=== PATIENT | female | born 1980 | race Caucasian/White ===

== ENCOUNTER 2023-09-15 15:35 | Emergency (ER) | payer OTHER, SELFPAY ==
[2023-09-15 15:44] VITALS: BP 161/110; PULSE 95; RESP 16; TEMP 36.6; O2SAT 98; BMI 40.0
--- NOTE | 2023-09-15 15:48 | XR_ITS ---
[address] [address] Patient Name: KHRIS GOFF MRN: [id number] date: 1980 Sex: F Assigned Patient Location: ER Current Patient Location: ED.MAIN Accession/Order Number: [id number] Exam Date: 09/15/2023 16:10 Report Date: 09/15/2023 16:38 At the request of: ANGIE RITTER Procedure: XR foot RT min 3V EXAM: XR foot RT min 3V HISTORY: Foot pain COMPARISON: None. TECHNIQUE: 3 views FINDINGS: No osseous lesion, fracture, dislocation or subluxation. Joint spaces are normal. No visualized effusion. No visualized soft tissue edema. XR/XR foot RT min 3V IMPRESSION: Normal x-rays Electronically authenticated by: DARCI MAHMOOD Date: 09/15/2023 16:38
--- NOTE | 2023-09-15 16:04 | ED.LOWEXI1 ---
HPI - Extremity Injury (Lower) General Chief Complaint: Extremity Injury, Lower Stated Complaint: R FOOT PAIN Time Seen by Provider: 09/15/23 15:46 Source: patient Mode of arrival: Wheelchair History of Present Illness HPI Narrative: Patient was doing plyometric exercises when she felt a pop and pain in the sole of her right foot along the arch. She has no prior history of right foot surgery or pain like this. This occurred about 20 minutes ago and she came directly to the ED to be evaluated. She said that it is painful to walk on/bear weight on the right foot. No fall or other injuries. No ankle, heel or achilles pain. Related Data Allergies Allergy/AdvReac Type Severity Reaction Status Date / Time amoxicillin Allergy Severe Verified 09/15/23 15:48 Exam Narrative Exam Narrative: Nurses notes and vital signs reviewed and patient is not hypoxic. afebrile General: Well-appearing and in no apparent distress. Skin: Warm, dry, no pallor noted. Cardiovascular: normal peripehral perfusion. Respiratory: No accessory muscle use or respiratory distress. Musculoskeletal: right ankle and toes with normal ROM, no calf or popliteal tenderness, no lower extremity edema/swelling. Tenderness on the sole of the right foot near the arch without palpable mass or crepitus. Neurological: A&O x4. No cranial nerve dysfunction observed. No truncal ataxia. Moves all extremities. Sensation intact. Psychiatric: Cooperative and interactive. Normal mood and affect. Constitutional Vital Signs, click to edit/add: Last Vital Signs Temp 97.8 F 09/15/23 15:44 Pulse 95 H 09/15/23 15:44 Resp 16 09/15/23 15:44 BP 161/110 H 09/15/23 15:44 Pulse Ox 98 09/15/23 15:44 O2 Del Method Room Air 09/15/23 15:44 Course Vital Signs Vital signs: Vital Signs Temperature 97.8 F 09/15/23 15:44 Pulse Rate 95 H 09/15/23 15:44 Respiratory Rate 16 09/15/23 15:44 Blood Pressure 161/110 H 09/15/23 15:44 Pulse Oximetry 98 09/15/23 15:44 Oxygen Delivery Method Room Air 09/15/23 15:44 Temperature 97.8 F 09/15/23 15:44 Pulse Rate 95 H 09/15/23 15:44 Respiratory Rate 16 09/15/23 15:44 Blood Pressure 161/110 H 09/15/23 15:44 Pulse Oximetry 98 09/15/23 15:44 Oxygen Delivery Method Room Air 09/15/23 15:44 MDM - Extremity Injury (Lower) MDM Narrative Medical decision making narrative: Patient given ibuprofen and then xrays of the right foot were obtained. No fractures or dislocation noted on viewing of the xrays. patient given reassurance as we discussed the results, diagnosis and plan for treatment. ED nurse applied a post-op shoe to the patient's right foot & patient was encouraged to take OTC ibuprofen for pain. Info given for Dr Garcia's office for referral. Imaging Data xr foot: Radiologist's impression: Patient Name: KHRIS GOFF MRN: [facility]:[id number] date: 1980 Sex: F Assigned Patient Location: ER Current Patient Location: ED.MAIN Accession/Order Number: [id number] Exam Date: 09/15/2023 16:10 Report Date: 09/15/2023 16:38 At the request of: ANGIE RITTER Procedure: XR foot RT min 3V EXAM: XR foot RT min 3V HISTORY: Foot pain COMPARISON: None. TECHNIQUE: 3 views FINDINGS: No osseous lesion, fracture, dislocation or subluxation. Joint spaces are normal. No visualized effusion. No visualized soft tissue edema. IMPRESSION: Normal x-rays Electronically authenticated by: DARCI MAHMOOD Date: 09/15/2023 16:38 Discharge Plan Discharge Chief Complaint: Extremity Injury, Lower Clinical Impression: Right foot sprain Patient Disposition: Home, Self-Care Time of Disposition Decision: 16:31 Instructions: Foot Sprain (ED) Stand Alone Forms: Portal Instructions Referrals: Nick Garcia DPM [Physician] - 1 week Discharge Date/Time: 09/15/23 17:20
--- NOTE | 2023-09-15 16:07 | PC.NURSE ---
bottom of foot has a bump where pt c/o pain. no bruising observed. pt having hard time ambulating on this
[2023-09-15] MEDS: IBUPROFEN 400 MG TABLET 800 MG PO (16:19)
== END 2023-09-15 17:20 | disposition home or self-care (01) ==
LOC: ER 16:38
PROVIDERS: Emergency Provider Emergency Medicine; PCP Family Medicine
DX: S93.601A Unspecified sprain of right foot, initial encounter (principal); X58.XXXA Exposure to other specified factors, initial encounter
CPT/HCPCS: 73630; 99283

== ENCOUNTER 2023-09-27 10:19 | Outpatient (OUT) | payer OTHER, SELFPAY ==
--- NOTE | 2023-09-27 | XR_ITS ---
[address] [address] Patient Name: KHRIS GOFF MRN: [id number] date: 1980 Sex: F Assigned Patient Location: [facility] Current Patient Location: Accession/Order Number: [id number] Exam Date: 09/27/2023 10:42 Report Date: 09/28/2023 08:07 At the request of: HECTOR RADER Procedure: XR foot SHALOM min 3V EXAMINATION: XR foot SHALOM min 3V HISTORY: BILATERAL FOOT PAIN COMPARISON: XR foot right 09/15/2023 FINDINGS: RIGHT FINDINGS: BONES: Small calcaneal plantar spur. No fracture, dislocation, bone lesion. Mild flattening of plantar arch. SOFT TISSUES: No visible soft tissue swelling. OTHER: Negative. LEFT FINDINGS: BONES: Mild flattening of plantar arch. No significant arthropathy or acute abnormality. SOFT TISSUES: No visible soft tissue swelling. OTHER: Negative. XR/XR foot SHALOM min 3V IMPRESSION: RIGHT CONCLUSION: Mild degenerative enthesopathic spurring of the calcaneus and mild pes planus. LEFT CONCLUSION: Mild pes planus. Electronically authenticated by: EVA LISA Date: 09/28/2023 08:07
== END 2023-09-27 10:20 | disposition home or self-care (01) ==
LOC: RAD 10:19
PROVIDERS: PCP Family Medicine; Visit Provider Podiatrist Foot & Ankle Surgery
DX: M79.671 Pain in right foot (principal); M79.672 Pain in left foot; M21.42 Flat foot [pes planus] (acquired), left foot; M21.41 Flat foot [pes planus] (acquired), right foot
CPT/HCPCS: 73630

== ENCOUNTER 2023-09-30 16:22 | Outpatient (RCR) | payer OTHER, SELFPAY | END 2023-10-30 08:00 | disposition home or self-care (01) | LOC: PT 16:22 | PROVIDERS: PCP Nurse Practitioner; Visit Provider Physician Assistant | DX: M72.2 Plantar fascial fibromatosis (principal); M24.575 Contracture, left foot; M24.574 Contracture, right foot | CPT/HCPCS: 97035; 97110; 97112; 97140; 97161 ==

== ENCOUNTER 2023-12-22 09:24 | Outpatient (OUT) | payer OTHER, SELFPAY ==
--- NOTE | 2023-12-22 09:26 | MM_ITS ---
Patient Name: KHRIS OGFF MR#: [id number] : 1980 Exam Date: 12/22/2023 Ordering Doctor: DR Kenneth Pinedo . RADIOLOGY REPORT PROCEDURE: MM TOMOSYNTHESIS SCREENING BI COMPARISON: MG MAMM SCREEN 3D SHALOM CAD, 06/01/2022. MG MAMM SCREEN 3D SHALOM CAD, 04/09/2021. MG MAMM SCREEN SHALOM W CAD, 10/04/2019. INDICATIONS: screening Calculator Name NCI Breast Cancer Risk Assessment Tool 5 Year Breast Cancer Risk 1.20% Lifetime Breast Cancer Risk 14.20% Personal Breast Cancer No Personal Ovarian Cancer No Treatments None Family Cancers Grandmother-paternal with breast cancer at age 70. LOCATION: [facility] BREAST COMPOSITION: Heterogeneously dense,which may obscure small masses. FINDINGS: DIAGNOSTIC CATEGORY 1--NEGATIVE. RIGHT BREAST: No significant suspicious finding. No significant change has occurred. LEFT BREAST: No significant suspicious finding. No significant change has occurred. RECOMMENDATIONS: ROUTINE MAMMOGRAM AND CLINICAL EVALUATION IN 12 MONTHS. PLEASE NOTE: A NORMAL MAMMOGRAM DOES NOT EXCLUDE THE POSSIBILITY OF BREAST CANCER. A CLINICALLY SUSPICIOUS PALPABLE LUMP SHOULD BE BIOPSIED. Dictated by: Alexx Mendez M.D. on 12/22/2023 at 15:49 Approved by: Alexx Mendez M.D. on 12/22/2023 at 15:51
--- OUTSIDE RECORDS SUMMARY | 2023-12-22 09:37 | XMS_ITS | CCD ---
Author Name Unknown Address [address] [place] [address] Organization [facility] Care Team Providers Care Tenter Frame Back Tender Name Role Phone Wesley Taylor Unavailable Unavail able Brandon, Wesley Mcintosh Unavailable Unavail able SHANTI, YARELI Resendez Unavailable Unavailable Gorty, Bj Ace Unavailable Unavailable Brandon, Wesley Mcintosh Unavailable Unavail able Brandon, Wesley Mcintosh Unavailable Unavail able YARELI CRABTREE Unavailable Unavailable KHRIS, DR PRICE Consulting Unavailable KHRIS, DR PRICE Admitting Unavailable CRABTREE, DR YARELI Resendez Primary Care Unavailable KHRIS, DR PRICE Attending Unavailable KHRIS, DR PRICE Admitting Unavailable SHANTI, DR YARELI Resendez Primary Care Unavailable KHRIS, DR PRICE Attending Unavailable KHRIS, DR PRICE Consulting Unavailable ZIEBER, DR ALEXX Ellison Consulting Unavailable Cricket, Sarah Barrett Attending Unavailable VERITO, LUCIA Attending Unavailable VERITO, LUCIA Attending Unavailable VERITO, LUCIA Attending Unavailable VERITO, LUCIA Attending Unavailable Unavailable Primary Care Provider Unavailjessica e Allergies Allergy Classification Reported Allergen(s) Allergy Type Date of Onset Reaction(s) Facility (4 sources) amoxicillin; Translations: [amoxicillin] Drug Allergy 6 Hives, Unknown [facility] Repository Medications Completed/Discontinued Medications Medication Drug Class(es) Dates Sig (Normalized) Sig (Original) meloxicam 7.5 mg oral tablet (1 source) Nonsteroidal Anti-inflammatory Drug Start: 09-12-2023 End: 12-07-2023 meloxicam (Mobic) 7.5 MG tablet Take 7.5 mg by mouth. 0 09/12/2023 12/07/2023 Discontinued phentermine hydrochloride 37.5 mg oral tablet (4 sources) Sympathomimetic Amine Anorectic Start: 09-14-2023 End: 01-06-2024 take 1 tablet by mouth before mealtime phentermine (Adipex-P) 37.5 MG tablet Indications: Encounter for weight management Take 1 tablet (37.5 mg) by mouth in the morning. Take before meals. 30 tablet 0 11/09/2023 12/07/2023 Discontinued Problems Problem Classification Problem Date Documented Date Episodic/Chronic Administrative/social admission (1 source) Patient encounter status; Translations: [Persons encountering health services in other specified circumstances] 12-02-2023 Episodic Immunizations and screening for infectious disease (1 source) Encounter for screening for human papillomavirus (HPV); Translations: [ENC SCREENING HUMAN PAPILLOMAVIRUS] Onset: 06-18-2022 Episodic Other screening for suspected conditions (not mental disorders or infectious disease) (8 sources) Encounter for screening for malignant neoplasm of cervix; Translations: [Encounter for screening mammogram for malignant neoplasm of breast] Onset: 06-01-2022 Episodic Residual codes; unclassified (1 source) Family history of malignant neoplasm of breast; Translations: [FAMILY HX MALIG NEOPLASM OF BREAST] Onset: 06-05-2022 Episodic Results Test Name Value Interpretation Reference Range Facility Consultation Noteon 11-07-19 Consultation Note [id number]#1.00TIFF Normal [facility] Consultation Noteon 10-05-20 Consultation Note [id number]#1.00TIFF Normal [facility] RAD - MISCon 09-28-2023 RAD - MISC [id number]#1.00TIFF Normal [facility] ED Note-Physicianon 09-20-20 ED Note-Physician [id number]#1.00TIFF Normal [facility] ED Note-Physician [id number]#1.00TIFF Normal [facility] RAD - MISCon 09-20-2023 RAD - MISC [id number]#1.00TIFF Normal [facility] Ambulatory Visit Summaryon 1 11-12-2022 Ambulatory Visit Summary KHRIS HERNANDEZ :1980 Visit Date:09/12/2023 Ambulatory Visit Instructions Your Diagnosis Heel pain BMI 39.0-39.9,adult Non-smoker Your Care Team Attending Physician - Sarah Deutsch Primary Care Physician - Sarah Deutsch Procedures Performed Surgery. Discharge Vitals Heart Rate (Peripheral) 80 Respiratory Rate 18 Blood Pressure 142/90 Height 166.2 cm Height 65 in Weight 109.8 kg Weight 241.56 lb BMI 39.75 Allergies amoxicillin (Hives) Problems Ongoing - Any problem that you are currently receiving treatment for. Heel pain Patient Survey You may receive a survey via text or e-mail asking about your office visit. Please share your experience with us by completing your survey. We appreciate your feedback and thank you for choosing us for your care. Normal [facility] Family Medicine Office/Clini c Noteon 09-12-2023 Family Medicine Office/Clinic Note HPI Staff Khris is a 42 year old female presenting to establish care Establish Care: History: Any previous diagnosis: History of seeing any specialist: When was your last doctors visit: Last provider: Dr Crabtree Any recent labs: nothing in the last year Health Maintenance UTD: Colonoscopy: 6-8 years ago Mammogram: 2021 normal Pelvic/Pap: Khris Acute: Current issues/complaints: Bilateral heel pain started this summer end of April, hurts on her heel when she walk has been wearing planter fascitis braces at night. pain is piercing when walking and throbbing when siting 3 weeks ago left thumb, pt was playing football with her son and believes she jammed it. unable to tighten or untighten things. History of Present Illness pt presents today for heel pain Review of Systems PHQ Score Initial Depression Screen Score: 0 SCORE ROS - Provider Constitutional: no fever, no chills, no sweats, no fatigue Respiratory: no shortness of breath, no cough, no orthopnea, no wheezing. Cardiovascular: no chest pain, no palpitations, no edema. Neurologic: no headache, no dizziness, no numbness, no weakness. Physical Exam Vitals & Measurements HR: 80(Peripheral) RR: 18 BP: 142/90 SpO2: 98% HT: 65 in HT: 166.2 cm WT: 109.8 kg WT: 241.56 lb BMI: 39.75 General: alert, no acute distress ENMT: oral mucosa moist, no pharyngeal erythema or exudate Cardiovascular: regular rate and rhythm, normal peripheral perfusion Respiratory: Lungs CTA, respirations non labored Extremities: no deformity, no trauma Neurological: oriented x 4, LOC appropriate for age, CN II-XII intact, motor strength equal & normal bilaterally, speech normal Assessment/Plan 1. Heel pain (M79.673: Pain in unspecified foot) pt presents today for SHALOM heel pain. pt states the pain started in March. she wore flip flops for about 4 days straight while [place]. and the pain has not improved since. she purchased some braces to wear at night and it helps a little with the morning pain. but by the end of the day. the pain is pretty miserable. will refer to Dr. Garcia in [place]. will order medrol dose pack and antiinflammatory. all questions answered. pt states she has labs done at work every year and her cholesterol and blood sugar were normal. RTC as needed Ordered: meloxicam, 7.5 mg = 1 tab(s), Oral, Daily, # 30 tab(s), Refills(s) 0, Pharmacy: [facility]/pharmacy #[id number], 166.2, cm, 09/12/23 8:30:00 EST, Height/Length Dosing, 109.8, kg, 09/12/23 8:30:00 EST, Weight Dosing methylPREDNISolone, = 1 packet(s), Oral, As Directed, as directed on package labeling, X 6 day(s), # 21 tab(s), Refills(s) 0, Pharmacy: [facility]/pharmacy #[id number], 166.2, cm, 09/12/23 8:30:00 EST, Height/Length Dosing, 109.8, kg, 09/12/23 8:30:00 EST, Weight Dosing 2. BMI 39.0-39.9,adult (Z68.39: Body mass index [BMI] 39.0-39.9, adult) bmi education complete Ordered: meloxicam, 7.5 mg = 1 tab(s), Oral, Daily, # 30 tab(s), Refills(s) 0, [id number], 166.2, cm, 09/12/23 8:30:00 EST, Height/Length Dosing, 109.8, kg, 09/12/23 8:30:00 EST, Weight Dosing methylPREDNISolone, = 1 packet(s), Oral, As Directed, as directed on package labeling, X 6 day(s), # 21 tab(s), Refills(s) 0, [id number], 166.2, cm, 09/12/23 8:30:00 EST, Height/Length Dosing, 109.8, kg, 09/12/23 8:30:00 EST, Weight Dosing 3. Non-smoker (Z78.9: Other specified health status) continue not smoking Ordered: meloxicam, 7.5 mg = 1 tab(s), Oral, Daily, # 30 tab(s), Refills(s) 0, [id number], 166.2, cm, 09/12/23 8:30:00 EST, Height/Length Dosing, 109.8, kg, 09/12/23 8:30:00 EST, Weight Dosing methylPREDNISolone, = 1 packet(s), Oral, As Directed, as directed on package labeling, X 6 day(s), # 21 tab(s), Refills(s) 0, [id number], 166.2, cm, 09/12/23 8:30:00 EST, Height/Length Dosing, 109.8, kg, 09/12/23 8:30:00 EST, Weight Dosing Follow-up No qualifying data available Problem List/Past Medical History Ongoing Heel pain Historical No qualifying data Procedure/Surgical History Surgery. Medications Medrol 4 mg Tab, 1 packet(s), Oral, As Directed meloxicam 7.5 mg Tab, 7.5 mg= 1 tab(s), Oral, Daily Allergies amoxicillin (Hives) Social History Tobacco Never (less than 100 in lifetime) Tobacco Use:. Never Smokeless Tobacco Use:. Household tobacco concerns: No., 09/12/2023 Family History Cancer: Aunt and Grandparent. Immunizations Vaccine Date Status influenza virus vaccine, inactivated 11/14/2017 Recorded diphtheria/pertussis, acel/tetanus adult 07/25/2017 Recorded influenza virus vaccine, inactivated 07/20/2017 Recorded influenza virus vaccine, inactivated 08/05/2016 Recorded influenza virus vaccine, inactivated 08/12/2014 Recorded Normal [facility] Comment on above: Result Comment: Elec tronically Signed By: Sarah Deutsch\.jelena\Date and Time Signed: 09/12/23 09:23 EST PAP ACOG PANEL 2: 30 to 65on 06-24-2022 . . Normal [facility] Comment on above: Result Comment: Perf ormed at: WB Performed By: #### [id number] #### [facility] [address] [place] [address] Dr. Radha Angel Age Gdln ACOG Testing 30-65 Normal [facility] Comment on above: Performed By: #### [id number] #### [facility] [address] [place] [address] Dr. Radha Angel DIAGNOSIS: Comment Abnormal [facility] Comment on above: Result Comment: EPIT HELIAL CELL ABNORMALITY. ATYPICAL SQUAMOUS CELLS OF UNDETERMINED SIGNIFICANCE (ASC-US). FUNGAL ORGANISMS MORPHOLOGICALLY CONSISTENT WITH INDERJIT SPECIES ARE PRESENT. Performed at: WB Performed By: #### [id number] #### [facility] [address] [address] [address] Radha Angel Electronically signed by: Comment Normal [facility] Comment on above: Result Comment: Lolis Grande MD, Pathologist Performed at: WB Performed By: #### [id number] #### [facility] [address] [address] [address] Radha Angel HPV Aptima Negative Normal Negative [facility] Comment on above: Result Comment: This nucleic acid amplification test detects fourteen high-risk HPV types (16,18,31,33,35,39,45,51,52,56,58,59,66,68) without differentiation. Performed at: =G Performed By: #### [id number] #### [facility] [address] [place] [address] Dr. Radha Angel Methodology: Comment Normal [facility] Comment on above: Result Comment: This liquid based ThinPrep(R) pap test was screened with the use of an image guided system. Performed at: WB Performed By: #### [id number] #### [facility] [address] [place] [address] Dr. Radha Angel Note: Comment Normal [facility] Comment on above: Result Comment: The Pap smear is a screening test designed to aid in the detection of premalignant and malignant conditions of the uterine cervix. It is not a diagnostic procedure and should not be used as the sole means of detecting cervical cancer. Both false-positive and false-negative reports do occur. . Performed at: WB Performed By: #### [id number] #### [facility] [address] [place] [address] Dr. Radha Angel Pathologist Provided ICD10 Comment Normal [facility] Comment on above: Result Comment: R87. 610, R87.5 Performed at: WB Performed By: #### [id number] #### [facility] [address] [place] [address] Dr. Radha Angel Performed by: Comment Normal [facility] Comment on above: Result Comment: Juanito Clemens, Manager Data Warehouse (ASCP) Performed at: WB Performed By: #### [id number] #### [facility] [address] [place] [address] Dr. Radha Angel Recommendation: Comment Abnormal [facility] Comment on above: Result Comment: Sugg est follow up as clinically appropriate. Performed at: WB Performed By: #### [id number] #### [facility] [address] [place] [address] Dr. Radha Angel Specimen adequacy: Comment Normal [facility] Comment on above: Result Comment: Sati sfactory for evaluation. Endocervical and/or squamous metaplastic cells (endocervical component) are present. Performed at: WB Performed By: #### 4 [id number] #### [facility] [address] [place] [address] Dr. Radha Angel MG MAMM SCREEN 3D SHALOM CADon 06-01-2022 MG MAMM SCREEN 3D SHALOM CAD Patient: KHRIS HERNANDEZ Exam Date: 06/01/2022 : 1980 Gender:F Ordering : DR DEE COLE . Admission #: [id number] Family : Order #: [id number] CLICK HERE TO VIEW EXAM RADIOLOGY REPORT PROCEDURE: MAMMOGRAM SCREENING 3D BILATERAL CAD COMPARISON: MG MAMM SCREEN 3D SHALOM CAD, 04/09/2021. MG MAMM SCREEN SHALOM W CAD, 10/04/2019. INDICATIONS: Screening for malignant neoplasm of breast Calculator Name NCI Breast Cancer Risk Assessment Tool 5 Year Breast Cancer Risk 1.10% Lifetime Breast Cancer Risk 14.40% Personal Breast Cancer No Personal Ovarian Cancer No Treatments None Family Cancers Grandmother-paternal with breast cancer at age 70. LOCATION: [facility] BREAST COMPOSITION: Extremely dense, which lowers the sensitivity of mammography. FINDINGS: DIAGNOSTIC CATEGORY 1--NEGATIVE. RIGHT BREAST: No significant suspicious finding. No significant change has occurred. LEFT BREAST: No significant suspicious finding. No significant change has occurred. RECOMMENDATIONS: ROUTINE MAMMOGRAM AND CLINICAL EVALUATION IN 12 MONTHS. PLEASE NOTE: A NORMAL MAMMOGRAM DOES NOT EXCLUDE THE POSSIBILITY OF BREAST CANCER. A CLINICALLY SUSPICIOUS PALPABLE LUMP SHOULD BE BIOPSIED. Dictated by: Alexx Mendez M.D. on 06/01/2022 at 15:15 Approved by: Alexx Mendez M.D. on 06/01/2022 at 15:17 Normal [facility] Intraoperative Noteon 2017 Intraoperative Note [id number][facility]-01 History and Physical [id number]#1.00[facility] Provider Orderson 03-01-2018 Provider Orders [id number]#1.00[facility] Coding Summaryon 01-10-2018 Coding Summary CODING DATE: [facility] STATUS: Home PAYOR: Commercial Insurance APC DESCRIPTION 5431 Level 1 Nerve Procedures ADMIT DX: REASON FOR VISIT DX: G56.02 Carpal tunnel syndrome, left upper limb M65.332 Trigger finger, left middle finger FINAL DX: PRINCIPAL: G56.02 Carpal tunnel syndrome, left upper limb SECONDARY: M65.332 Trigger finger, left middle finger PYMT PROC APC STAT DESCRIPTION DOCTOR NAME DATE 79571 5431 J1 Neuroplasty and/or BrandonWesley hess And 01/09/2018 transposition; median nerve at carpal tunnel LT Left side (used to identify procedures performed on the left side of the body) 35564 Tendon sheath incision Brandon, Wesley And 01/09/2018 (eg, for trigger finger) F2 Left hand, third digit NOTE: The code number assigned matches the documented diagnosis and / or procedure in the patient's chart. However, the narrative phrase printed from the coding software may appear abbreviated, or result in slightly different terminology. Coded By: Hannah Rodriguez Date Saved: 01/10/2018 01:39 pm [facility] Consent Formson 01-10-2018 Consent Forms [id number]#1.00OTGTIFF [facility] Anesthesia Noteon 01-09-2018 Anesthesia Note Patient: DENVER SHELDON Isidro : 37 years Sex: FEMALE : [birth year]Associated Diagnoses: NoneAuthor: Bj Cuellar MDPostoperative InformationPost Operative Note: Post Anesthesia Care Unit.Health StatusAllergies:Allergic Reactions (All)Severity Not DocumentedAmoxicillin- Hives.Physical ExaminationVS/MeasurementsVi willi Signs01/09/18 10:45 EDT Peripheral Pulse Rate 59 bpm LOW Respiratory Rate 16 br/min Systolic Blood Pressure 160 mmHg HI Diastolic Blood Pressure 91 mmHg HI Mean Arterial Pressure, Cuff 114 mmHg BP Site Right lower leg SpO2 97 % Oxygen Therapy Room airGeneral: No acute distress.Respiratory: Respirations are non-labored.Review / ManagementCondition: Stable.AssessmentAnesthetic outcomeNo anesthetic complications noted.Adequate pain relief.No Complaint of nausea and vomiting.PlanTransfer/ Discharge: Patient can be discharged from PACU when criteria met.Condition stable.[Electronically Signed on: 01/09/2018 11:14 EDT] Bj Cuellar MD[Verified on: 01/09/2018 11:14 EDT] Bj Cuellar MD [facility] Anesthesia Note Patient: ME SHELDON HERNANDEZ : 37 years Sex: FEMALE : [birth year]Associated Diagnoses: NoneAuthor: Bj Cuellar MDPreoperative InformationAnesthesia history: Patient history: No difficult intubation, No malignant hyperthermia. Family history: No malignant hyperthermia.Review of SystemsRespiratory: No shortness of breath, No apnea.Cardiovascular: No known WI, No chest pain.Gastrointestinal: No heartburn.Health StatusAllergies:Allergic Reactions (All)Severity Not DocumentedAmoxicillin- Hives.Current medications:No qualifying data availableProblem list (past medical history):All ProblemsH/O fracture of wrist / SNOMED CT [id number] / ConfirmedHistoriesFamily History:No family history items have been selected or recorded.Procedure history:No active procedure history items have been selected or recorded.Social History Alcohol Assessment Use: Current. Beer, Wine, Liquor, 1-2 times per year Tobacco Assessment Former smoker, quit more than 30 days ago Tobacco Use:. Substance Abuse Assessment Substance use: Never..Physical ExaminationVS/MeasurementsVi willi Signs (last 24 hrs) Last ChartedHeart Rate Peripheral 92 bpm (JAN 09 08:05)Resp Rate 16 br/min (JAN 09 08:)SBP H 145 mmHg (JAN 09:)DBP H 94 mmHg (JAN 09:)SpO2 98 % (JAN 09 08:)General: Alert and oriented, No acute distress.Airway: Mallampati classification: I (soft palate, fauces, uvula, pillars visible). Mouth: Within normal limits.Respiratory: Respirations are non-labored.Cardiovascular: Normal rate.Review / ManagementResults review: Lab results: 01/09/18 08:01 EDT U Preg Negative .Laboratory ResultsPlanAmerican Society of Anesthesiologists#(ASA) physical status classification: Class I.Anesthetic Preoperative PlanAnesthesia: Monitored anesthesia care. Anesthetic plan, risks, benefits, and alternatives discussed with the patient and/or family. Patient verbalized understanding. Family/Guardian present. Informed consent was given. Consent was signed by the patient.[Electronically Signed on: 01/09/2018 08:25 EDT] Bj Cuellar MD[Verified on: 01/09/2018 08:25 EDT] Bj Cuellar MD Normal [facility] Inpatient Clinical Summaryon 01-09-2018 Inpatient Clinical Summary [facility] SURGERYClinical Discharge SummaryPERSON INFORMATIONName KHRIS HERNANDEZ Age 37 Years [birth year]Sex FEMALE Language Qatari PCP Arsh CRABTREE Status [facility] Service Ambulatory SurgeryN [id number] Acct# Arrival 01/09/18 07:23:04Visit Reason SURGERY - RELEASE LEFT CARPAL TUNNEL AND TRIGGER FINGER LEFT MIDDLE FINGER Acuity LOS 039 21:44Address:[address] [place], [place] [id number]:PROVIDER INFORMATIONVITALS INFORMATIONVital Sign Triage LatestTemp OralTemp TemporalTemp IntravascularTemp AxillaryTemp Macpsn28 Sat 98 % 99 %Respiratory Rate 16 br/min 16 br/minPeripheral Pulse Rate 73 bpm 75 bpmApical Heart RateBlood Pressure 130 mmHg / 92 mmHg 133 mmHg / 87 mmHgComment:MEDICAL INFORMATIONAllergy Info:amoxicillinPrescription s Given:Medication List:Comment:Lab and Radiology ResultsLaboratory or Other Results This Visit (last charted value for your 01/09/2018 visit) Chemistry 01/09/2018 8:01 AM U Preg: NegativeDIET & ACTIVITYPatient Activity Level:Patient Diet:RegularPatient Activity Restrictions:DISCHARGE INFORMATIONDischarge Disposition:Discharge Location:DEPART REASON INCOMPLETE INFORMATIONPATIENT EDUCATION INFORMATIONInstructions:Valentinod cecil- Post Op Carpal Tunnel ([facility])Follow up:With: Address: When:CHANELL THOMAS [address] [place] [address], [address] [place] [address] Business (1) 01/18/2018 9:00 AMWith: Address: When:YARELI CRABTREE [address] [place], [place] [id number] Business (1)DIAGNOSISCarpal tunnel syndrome on left; Trigger finger, left middle fingerComment:PHYS DOC NOTES Normal [facility] Inpatient Patient Summaryon 01-09-2018 Inpatient Patient Summary [place] [id number] patient Discharge InstructionsName: KHRIS HERNANDEZ MDOB: [birth year] Address: [address] [place], [place] [address]Primary Care Provider:Name: YARELI CRABTREEPhone: After you are discharged if you find you have any questions, please, call [phone] ext [phone] to speak to a nurse.Discharge Diagnosis: Carpal tunnel syndrome on left; Trigger finger, left middle fingerIf you received any narcotics, sedation, or any other medication that causes drowsiness for the next 24 hours, unless otherwise directed:? Do not drive a car.? Do not operate machinery such as power tools, lawn mowers, drills, sewing machines, or stoves? Avoid alcoholic beverages and drugs for allergies, nerves, or sleep? Do not make important personal or business decisions or sign any legal documentsMercy Health [facility] would like to thank you for allowing us to assist you with your healthcare needs. The following includes patient education materials and information regarding your injury/illness.KHRIS HERNANDEZ has been given the following list of follow-up instructions, prescriptions, and patient education materials:Follow-up InstructionsWith: Address: When:CHANELL THOMAS [facility] [address] [place] [address] Business (1) 01/18/2018 9:00 AMWith: Address: When:YARELI CRABTREE [address] [place] [id number] Business (1)MedicationsDuring the course of your visit, your medication list was updated with the most current information. The details of those changes are reflected below:It is important to always keep an active list of medications available so that you can share with other providers and manage your medications appropriately. As an additional courtesy, we are also providing you with your final active medications list that you can keep with you.No Known Home MedicationsTake only the medications listed above. Contact your doctor prior to taking any medications not on this list.Diet & ActivityPatient Activity Level:Patient Diet: RegularPatient Activity Restrictions:Comment:Patient education materials, if any, will display belowDR. FOLEY POST OPERATIVE CARPEL TUNNEL INSTRUCTIONSSURGEONS WRITTEN INSTRUTCTIONS:-Keep your hand elevated above your elbow for the first 24 hours after surgery-Wiggle your fingers frequently while awake-DO NOT lift heavy objects or crew clerk forcefully with your hand-Change your dressing in 1 day and apply an jarvis bandage as directed with the thumb tucked towards the palm of your hand. This keeps the tension off your incision-You may shower in 1 day but do not submerge your hand under water. Put a 4x4 gauze and the jarvis bandage back on after you shower-If you have any problems or concerns, please call the office at [phone]-Follow up as scheduledViruses or BacteriaWhat?s got you sick?Antibiotics only treat bacterial infections. Viral illnesses cannot be treated with antibiotics. When an antibiotic is not prescribed, ask your healthcare professional for tips on how to relieve symptoms and feel better. Usual CauseIllness Viruses Bacteria Antibiotic NeededCold/Runny Nose NOBronchitis/Chest Cold (in otherwise healthy children and adults) NOWhooping Cough YesFlu NOStrep Throat YesSore Throat (except strep) NOFluid in the middle ear (otitis media with effusion) NOUrinary Tract Infection YesAntibiotics Aren?t Always the Answerwww.cdc.gov/getsmart GETSMARTKnow When Antibiotics [place] Department of Health and Human ServicesCenters for Disease Control and Prevention July 2014 [facility] MAGR Intraoperative Recordon 01-09-2018 [facility] [place] Intraoperative Record MAGR Intra-Op Record Summary Primary Physician: Wesley Taylor DO Finalized Date/Time: 01/09/18 11:09:48 Pt. Name: KHRIS HERNANDEZ/Sex: 1980 FEMALE Med Rec #: [id number] Physician: Wesley Taylor DO Financial #: [id number] Pt. Type: D Room/Bed: / Admit/Disch: 01/09/18 07:23:04 - Institution: Case Times MAGR Entry 1 Patient In Room Time 01/09/18 09:31:00 Out Room Time 01/09/18 10:17:00 Anesthesia Start Time 01/09/18 09:31:00 Stop Time 01/09/18 10:17:00 Surgery Start Time 01/09/18 09:49:00 Stop Time 01/09/18 10:10:00 Last Modified By: Alina Kilpatrick RN 01/09/18 10:18:21 Case Attendance MAGR Entry 1 Entry 2 Entry 3 Case Attendee Wesley Taylor Satya S MD Sauer, Stephanie RN Andrew DO Role Performed Surgeon - Primary Anesthesiologist of Commercial Real Estate Lender Record Time In 01/09/18 09:31:00 01/09/18 09:31:00 01/09/18 09:31:00 Time Out 01/09/18 10:17:00 01/09/18 10:17:00 01/09/18 10:17:00 Procedure Carpal Tunnel Carpal Tunnel Carpal Tunnel Release(Left), Trigger Release(Left), Trigger Release(Left), Trigger Finger Release(Left) Finger Release(Left) Finger Release(Left) Last Modified By: Alina Kilpatrick RN, Stephanie RN Sauer, Stephanie RN 01/09/18 10:18:25 01/09/18 10:18:25 01/09/18 10:18:45 Entry 4 Entry 5 Case Attendee BOARD CSFA/HOBBING MACHINE OPERATOR, Ang Zavala CST Role Performed Asphalt Spreader Operator Scrub Personnel Time In 01/09/18 09:31:00 01/09/18 09:31:00 Time Out 01/09/18 10:17:00 01/09/18 10:17:00 Procedure Carpal Tunnel Carpal Tunnel Release(Left), Trigger Release(Left) Finger Release(Left) Last Modified By: Alina Kilpatrick RN, Stephanie RN 01/09/18 10:18:45 01/09/18 10:18:58 Surgical Procedures MAGR Pre-Care Text: A.20 Verifies operative procedure, surgical site, and laterality Im.150 Develops individualized plan of care Entry 1 Entry 2 Procedure Carpal Tunnel Release Trigger Finger Release Primary Procedure Yes No Primary Surgeon Wesley Taylor James Andrew DO Arnaldo DO Modifiers Left Left Surgeon Comment RELEASE LEFT CARPAL RELEASE LEFT CARPAL TUNNEL AND TRIGGER TUNNEL AND TRIGGER FINGER LEFT MIDDLE FINGER LEFT MIDDLE FINGER FINGER Start 01/09/18 09:49:00 01/09/18 09:49:00 Stop 01/09/18 10:10:00 01/09/18 10:10:00 Anesthesia Type MAC MAC Surgical Service Orthopedics Orthopedics Wound Class Clean Clean Last Modified By: Alina Kilpatrick RN, Stephanie RN 01/09/18 10:18:30 01/09/18 10:18:30 Post-Care Text: O.730 The patient's care is consistent with the individualized perioperative plan of care General Case Data MAGR Pre-Care Text: A.350.1 Classifies surgical wound Entry 1 Case Information OR MAGR OR 02 Case Level Level 3 Wound Class Clean Specialty Orthopedics ASA Class 1 Diagnosis Preop Diagnosis LEFT CARPAL TUNNEL Postop Same As Preop Yes SYNDROME AND TRIGGER FINGER LEFT MIDDLE FINGER Postop Diagnosis LEFT CARPAL TUNNEL SYNDROME AND TRIGGER FINGER LEFT MIDDLE FINGER Last Modified By: Alina Kilpatrick RN 01/09/18 09:54:58 Post-Care Text: O.760 Patient receives consistent and comparable care regardless of the setting Time Out MAGR Entry 1 Time out date/time 01/09/18 09:43:00 All team members Yes have introduced themselves by name and role Surgeon, Yes Surgeon reviews Yes anesthesia, nurse critical or confirm patient, unexpected steps, site, procedure operative duration, anticipated blood loss Anesthesia team Yes Nursing team Yes reviews any reviews sterility patient-specific (including concerns indicator results) and equipment issues/concerns Antibiotic Yes Is essential N/A prophylaxis given imaging displayed? within the last 60 minutes Last Modified By: Alina Kilpatrick RN 01/09/18 09:55:17 Patient Positioning MAGR Pre-Care Text: A.280 Identifies baseline musculoskeletal status Im.40 Positions the patient Im.80 Applies safety devices Entry 1 Procedure Carpal Tunnel Body Position Supine Release(Left), Trigger Finger Release(Left) Left Arm Position Extended on Hand Table Right Arm Position Extended on padded arm board Left Leg Position Extended Right Leg Position Extended Feet Uncrossed? Yes Press Points Checked Yes Positioning Device Arm Boards, Arm Strap, Outcome Met (O.80) Yes Pillow, Safety Strap Last Modified By: Alina Kilpatrick RN 01/09/18 09:55:33 Post-Care Text: E.290 Evaluates musculoskeletal status O.80 Patient is free from signs and symptoms of injury related to positioning Skin Prep MAGR Pre-Care Text: A.30 Verifies allergies Im.270 Performs skin preparation Im.270.1 Implements protective measures to prevent skin and tissue injury due to chemical sources Entry 1 Skin Prep Syntegrity Prep Agents (Im.270) Chlorhexidine Gluconate Prep By Alina Kilpatrick RN and Alcohol Prep Area (Im.270) Elbow and forearm, Hand Prep Area Details Left Skin Prep Agent Dry Yes Without Pooling Hair Removal Syntegrity Hair Removal Methods No hair removal performed Outcome Met (O.100) Yes Last Modified By: Alina Kilpatrick RN 01/09/18 09:56:07 Post-Care Text: E.10 Evaluates for signs and symptoms of physical injury to skin and tissue O.100 Patient is free from signs and symptoms of chemical injury Counts Verification MAGR Pre-Care Text: A.20 Verifies operative procedure, surgical site, and laterality A.20.2 Assesses the risk for unintended retained foreign body Im.20 Performs required counts Entry 1 Procedure Carpal Tunnel Release(Left), Trigger Finger Release(Left) Counts Verification Initial Counts Items included in Sponges, Sharps Initial Counts Manual the Initial Count Method Initial Counts Alina Kilpatrick RN, Initial Count Time 01/09/18 09:30:00 Performed By Ang Ya HOBBING MACHINE OPERATOR Counts Verification Final Counts Items Included in Sponges, Sharps Final Count Method Manual Final Count Final Count Status Correct Final Counts Alina Kilpatrick RN, Performed By Ang Ya HOBBING MACHINE OPERATOR Final Count Time 01/09/18 10:04:00 Surgeon notified of Yes final counts status Outcome Met (O.20) Yes Last Modified By: Alina Kilpatrick RN 01/09/18 10:06:50 Post-Care Text: E.50 Evaluates results of the surgical count O.20 Patient is free from unintended retained foreign objects Tourniquet MAGR Pre-Care Text: A.240 Assesses baseline skin condition Im.120 Implements protective measures to prevent skin or tissue injury due to mechanical sources Entry 1 Tourniquet Type TOURNIQUET Cuff Size 45.7 cm Serial Number [id number] Setting 250 mmHg Placement Arm upper Padding (Im.120) Yes Placement Details Left Tourniquet Times Inflated 01/09/18 09:46:00 Deflated 01/09/18 10:10:00 Total Time 22 Applied By Alina Kilpatrick RN Removed By BOARD CSFA/HOBBING MACHINE OPERATOR, XENA Outcome Met (O.60) Yes Last Modified By: Alina Kilpatrick RN 01/09/18 10:10:12 Post-Care Text: E.10 Evaluates for signs and symptoms of physical injury to skin and tissue O.60 Patient is free from sign and symptoms of injury caused by extraneous objects Medication Administration MAGR Pre-Care Text: A.210 Identifies physiological status Im.220 Administers prescribed medications Entry 1 Entry 2 Time Administered 01/09/18 09:47:00 01/09/18 10:08:00 Medication LIDOCAINE 1 % BACITRACIN Route of Admin SubQ TOP Dose Volume 8 mL By Wesley Taylor James Andrew DO Andrew DO Outcome Met (O.130) Yes Yes Last Modified By: Alina Kilpatrick RN, Stephanie RN 01/09/18 09:58:44 01/09/18 10:06:36 Post-Care Text: E.20 Evaluates response to medications O.130 Patient receives appropriately administered medication(s) Dressing/Packing MAGR Pre-Care Text: A.350 Assesses susceptibility for infection Im.290 Administer care to wound sites Entry 1 Skin Prep Agent Yes Site Hand Removed Prior to Dressing? Site Details Left Dressing Item Details Dressing Item 4x4's, ABD Tape (Im.290) Elastic Sports Bandage (Im.290) Outcome Met Yes Last Modified By: Alina Kilpatrick RN 01/09/18 09:59:02 Post-Care Text: E.200 Evaluates progress of wound healing O.200 Patient's wound perfusion is consistent with or improved from baseline levels Departure from OR MAGR Entry 1 Present on Depart N/A Via Stretcher Post-op Destination [place] Skin DFO Condition Dry Description Condition Intact Description Report Given To Belia Emmanuel RN Airway Maintenance Patient Status Stable Oxygen in Use? Yes Flow Rate 0 L/min Last Modified By: Alina Kilpatrick RN 01/09/18 10:19:24 Case Comments Finalized By: Alina Kilpatrick RN Document Signatures Signed By: Alina Kilpatrick RN 01/09/18 10:19 Alina Kilpatrick RN 01/09/18 11:09 Unfinalized History Date/Time Username Reason for Unfinalizing Freetext Reason for Unfinalizing 01/09/18 11:08 DONGSSSERENITY Modify Pick List [facility] MAGR Postoperative Recordon 01-09-2018 MAGR Postoperative Record MAGR Phase II Record Summary Primary Physician: Wesley Taylor DO Finalized Date/Time: 01/09/18 11:54:57 Pt. Name: FRANCharlotte KHRISANA Siu./Sex: 1980 FEMALE Med Rec #: [id number] Physician: Wesley Taylor DO Financial #: [id number] Pt. Type: D Room/Bed: / Admit/Disch: 01/09/18 07:23:04 - Institution: Phase II Case Times MAGR Pre-Care Text: Patient is free from s/s of injury. Patient remains free from compromised physical state related to surgery or anesthesia. Patient comfort maintained. Patient/family verbalize understanding of discharge instructions. Entry 1 In PACU II 01/09/18 10:15:00 Discharge from PACU 01/09/18 11:54:00 II Last Modified By: Belia Emmanuel RN 01/09/18 11:54:53 Post-Care Text: The patient remains free from s/s of injury. Patient's vital signs stable, circulation maintained, return to preop mental and physical status, opsite/dressing intact, minimal or absent nausea and vomiting, tolerates po intake. Patient verbalizes adequate pain control. Patient/family express understanding of discharge instructions. Finalized By: Belia Emmanuel RN Document Signatures Signed By: Belia Emmanuel RN 01/09/18 11:54 [facility] MAGR Preoperative Recordon 0 01-09-2018 MAGR Preoperative Record MAGR Pre-Op Record Summary Primary Physician: Wesley Taylor DO Finalized Date/Time: 01/09/18 10:24:11 Pt. Name: KHRIS HERNANDEZ /Sex: 1980 FEMALE Med Rec #: [id number] Physician: Wesley Taylor DO Financial #: [id number] Pt. Type: D Room/Bed: / Admit/Disch: 01/09/18 07:23:04 - Institution: Pre-Op Case Times MAGR Pre-Care Text: Patient will be optimally prepared for surgery. Patient is free from s/s of injury. Provide information to patient/family related to plan of care. Verify patient allergies. Confirm identity and verify consent before the operative or invasive procedure. Entry 1 Patient Arrival Time 01/09/18 08:02:00 Preop Departure 01/09/18 09:25:00 Last Modified By: Belia Emmanuel RN 01/09/18 10:24:07 Post-Care Text: Patient is prepared mentally and physically and is ready for surgery. The patient remains free from s/s of injury. Patient/family express understanding of plan of care and participate in decisions affecting his or her perioperrative plan of care. Allergies documented appropriately. Patient identifiers and consent correct. General Comments: Pt arrives to psw ambulatory. Pt denies any pain, cp, sob, cough or flu like symptoms. Pt denies pacemaker/defibillator or sleep apnea. Finalized By: Belia Emmanuel RN Document Signatures Signed By: Belia Emmanuel RN 01/09/18 10:24 Normal [facility] Operative Report - Surgeon/P armida 01-09-2018 Operative Report - Surgeon/Physician Procedure: Decompression of median nerve left wrist with release of carpal canalDecompression and release of trigger finger left middlePre Op Diagnosis: Carpal tunnel syndrome leftTrigger finger left middlePost Op Dianosis: Carpal tunnel syndrome leftTrigger finger left middleSurgeon: Dr. Andrea Taylor, DOAnesthesia: Conscious sedation with local anesthesiaIndication for Surgery: The patient had symptoms of carpal tunnel syndrome. There was evidence of progression. We discussed surgical and nonsurgical alternatives and the risks and benefits of each and the chances for success / failure. I recommended to proceed with surgery and the patient requested the same.Additionally she had painful triggering of the left middle finger and wanted that released as wellFindings: The median nerve was noted to be present and intact within the carpal canal. The carpal canal/tunnel was stenotic. There was stenosis of the A1 andi with triggering at the A1 andi of the left middle fingerBlood Loss: ScantSpecimen: NoneProcedure Summary: After administration of anesthesia the left upper extremity was sterilely prepped and draped in usual fashion. A timeout was taken in the operating room. A longitudinal incision was made over the carpal tunnel dissection was carried down beyond the palmaris longus and down to the transverse carpal ligament. Transverse carpal ligament was incised with a 15 blade and then released proximally and distally with a pair of Mullins scissors. I made sure that the nerve was completely decompressed as it exited the distal volar forearm fascia and traveled through the carpal tunnel and into the hand. The wound was irrigated with copious amounts sterile saline and the skin was closed with nylon suture.A transverse incision was made over the A1 andi of the left middle finger. Blunt dissection was carried down protecting the neurovascular structures. A1 andi was identified and an incision was made with a 15 blade. The release was then completed proximally and distally with a pair of tenotomy scissors. I then took the finger through range of motion and noted that there was no residual triggering.The incision was then irrigated and then closed with a nylon suture.Adaptic sterile dressings and an Jarvis bandage were applied to the wounds with the thumb in appositionComplications: None[Electronically Signed on: 01/09/2018 11:20 EDT] Wesley Taylor DO[Verified on: 01/09/2018 11:20 EDT] Wesley Taylor DO [facility] Test Urine 1on U Preg Negative [facility] Comment on above: Performed By: #### [id number] ####[facility] (DEFAULT)[address] [place] [address] U Preg Internal Control Pass [facility] Comment on above: Performed By: #### [id number] ####[facility] (DEFAULT)[address] [place] [address] Progress Note - Nurseon 03- Progress Note - Nurse Spoke with pt and informed her to be here at 0730 and NPO after MN, she verbalizes understanding.[Electronicall y Signed on: 01/06/2018 09:54 EST] Belia Emmanuel RN[Verified on: 01/06/2018 09:54 EST] Belai Emmanuel RN [facility] Vital Signs Date Time Vital Sign Value Performing Clinician Faci lity 12-07-2023 15:40-0500 Body mass index (BMI) [Ratio] 38.29 kg/m2 Lucia STROUD Work Phone: [facility] 12-07-2023 15:40-0500 Body weight 104.37 kg Lucia STROUD Work Phone: [facility] 12-07-2023 15:40-0500 Diastolic blood pressure 80 mm[Hg] Lucia STROUD Work Phone: [facility] 12-07-2023 15:40-0500 Systolic blood pressure 130 mm[Hg] Lucia STROUD Work Phone: [facility] Healthcare Encounters Encounter Date Encounter Type Care Provider Facility Start: 12-07-2023 End: 12-07-2023 ambulatory LUCIA SELLERS Not Available Start: 12-07-2023 End: 12-07-2023 Office outpatient visit 15 minutes Lucia STROUD Work Phone: [facility] Comment on above: Encounter for weight management Start: 11-09-2023 End: 11-09-2023 ambulatory LUCIA SELLERS Not Available Start: 10-12-2023 End: 10-12-2023 ambulatory LUCIA SELLERS Not Available Start: 09-14-2023 End: 09-14-2023 ambulatory LUCIA SELLERS Not Available Start: 09-12-2023 End: 09-13-2023 ambulatory Sarah L Cricket Facility:[facility] Start: 09-02-2023 ambulatory Sarah Harley Facility:[facility] Start: 06-17-2022 End: 06-17-[address] DEE COLE Facility:[facility] Start: 06-01-2022 End: 06-02-[address] DEE COLE Facility:[facility] Start: 01-09-2018 End: 01-09-[address] [facility] Facility:[facility] Start: 12-20-2017 End: 12-20-[address] [facility] Facility:[facility] Plan of Treatment Date Care Activity Detail Author Start: 01-04-2024 End: 01-04-2024 Patient encounter procedure 01/04/2024 3:40 PM EST Office Visit [facility] [address] [place] [address] Lucia Sellers PA [address] [place], [place] [address] [facility] Payers Date Payer Category Payer Unknown [employer] [id number] 2023-Present [address] [place] [address] [id number] 1980 Unknown [id number] 1980 Unknown [id number] 1980 Unknown [id number] 1980 Unknown [id number] 1980 Unknown [id number] 1978 Unknown [id number] 1980 Unknown [id number] 1961 Unknown [id number] Social History Date Type Detail Facility Start: 06-15-2023 Tobacco smoking status IAIS Never sm oked tobacco [facility] Start: 06-15-2023 Tobacco use and exposure Smoke less tobacco non-user [facility] Start: 12-07-2023 Alcohol intake Current drinke r of alcohol (finding) [facility] Start: 06-15-2023 End: 09-13-2023 [facility] of [facility] Start: 06-15-2023 End: 09-13-2023 Alcohol Use Disorder Identification Test - Consumption [AUDIT-C] [facility] How often to you hav e a drink containing alcohol? Monthly or less [facility] Average Number of Drinks Not on file [facility] Start: 06-15-2023 Alcohol Comment Occasional alcohol u se [facility] Start: 1980 Sex Assigned At Not on file [facility] History of Present illness Narrative 12-07-2023 LUANNE Pedraza - 12/07/2023 3:20 PM EST Note Date & Type Note Facility 12-07-2023 History of Presen t illness Narrative Reason for Appointment: Patient ID: Khris Hernandez is a 43 y.o. female who presents for Encouter for weight management (Adipex #4) Patient presents today for a weight management consultation. Patient has been prescribed Adipex and she is here for her 4th prescription. Today's Vitals: Estimated body mass index is 38.29 kg/m as calculated from the following: Height as of 11/09/23: 5' 5 . Weight as of this encounter: 230 lb 1.6 oz. Previous Weight/BMI: Wt Readings from Last 3 Encounters: 12/07/23 230 lb 1.6 oz 11/09/23 231 lb 10/12/23 231 lb 12.8 oz BMI Readings from Last 3 Encounters: 12/07/23 38.29 kg/m 11/09/23 38.44 kg/m 10/12/23 38.57 kg/m Allergies as of 12/07/2023 - Reviewed 12/07/2023 Allergen Reaction Noted Amoxicillin Hives and Unknown 12/03/2019 Past Medical History: Diagnosis Date Abnormal weight gain Anxiety Breast cancer screening by mammogram Encounter for gynecological examination (general) (routine) without abnormal findings Obesity (BMI 30-39.9) Tearfulness Past Surgical History: Procedure Laterality Date CARPAL TUNNEL RELEASE Left 01/09/2018 Dr. Taylor TRIGGER FINGER RELEASE Left 01/09/2018 - Dr. Taylor Review of Systems: Review of Systems Constitutional: Negative. HENT: Negative. Eyes: Negative. Respiratory: Negative. Cardiovascular: Negative. Gastrointestinal: Negative. Genitourinary: Negative. Musculoskeletal: Negative. Skin: Negative. Neurological: Negative. All other systems reviewed and are negative. Hematological: Negative. Endocrine: Negative. Allergic/Immunologic: Negative. Objective Physical Exam Constitutional: Appearance: Normal appearance. She is normal weight. HENT: Head: Normocephalic. Cardiovascular: Rate and Rhythm: Normal rate. Pulses: Normal pulses. Pulmonary: Effort: Pulmonary effort is normal. Breath sounds: Normal breath sounds. Abdominal: Palpations: Abdomen is soft. Musculoskeletal: General: Normal range of motion. Neurological: General: No focal deficit present. Mental Status: She is alert and oriented to person, place, and time. Psychiatric: Mood and Affect: Mood normal. Behavior: Behavior normal. Thought Content: Thought content normal. Judgment: Judgment normal. Vitals and nursing note reviewed. Assessment/Plan Encounter Diagnosis Name Primary? Encounter for weight management Patient presents today for Adipex prescription. Patient desires additional weigh loss. Pt will start taking metformin along with working out to achieve further results. Weight and blood pressure has been captured and I have discussed/reiterated the importance of keeping a food journal, proper nutrition/diet, and exercise regimen. Patient verbalized understanding. Patient has lost more than 5% of her initial body weight Follow Up: Pt will follow up in one month. We will discuss other options including ozempic at that visit Documented by: LUANNE Pedraza on behalf of LUANNE Pedraza documented in this encounter [facility] Evaluation note Note Date & Type Note Facility Evaluation note Diagnosis Encounter for weight management documented in this encounter [facility] Summary Purpose Family History No Family History Records FoundNo Family History Records FoundNo Family History Records FoundNo Family History Records Found Advance Directives No Advanced Directives Records FoundNo Advanced Directives Records FoundNo Advanced Directives Records FoundNo Advanced Directives Records Found Additional Source Comments INFORMATION SOURCE (unrecogn ized section and content) DATE CREATED AUTHOR 04/19/2018 [facility] DATE CREATED AUTHOR AUTHOR'S ORGANIZ ATION 06/26/2022 [facility] DATE CREATED AUTHOR AUTHOR'S ORGANIZ ATION 11/07/2023 [facility] DATE CREATED AUTHOR AUTHOR'S ORGANIZ ATION 12/08/2023 [facility] EPIC Reason for Visit (unrecogniz ed section and content) Reason Comments Encouter for weight management Adipex #4 FOR RECORDS PERTAINING TO PATIENTS WHO ARE OR HAVE BEEN ENROLLED IN A CHEMICAL DEPENDENCY/SUBSTANCEABUSE PROGRAM, SOME INFORMATION MAY BE OMITTED. This clinical summary was aggregated from multiple sources. Caution should be exercised in using it in the provision of clinical care. This summary normalizes information from multiple sources, and as a consequence, information in this document may materially change the coding, format and clinical context of patient data. In addition, data may be omitted in some cases. CLINICAL DECISIONS SHOULD BE BASED ON THE PRIMARY CLINICAL RECORDS. [employer] provides no warranty or guarantee of the accuracy or completeness of information in this document.
== END 2023-12-22 09:25 | disposition home or self-care (01) ==
LOC: MAMMO 09:24
PROVIDERS: PCP Nurse Practitioner; Visit Provider Obstetrics & Gynecology
DX: Z12.31 Encounter for screening mammogram for malignant neoplasm of breast (principal); Z80.3 Family history of malignant neoplasm of breast
CPT/HCPCS: 77063; 77067

== ENCOUNTER 2024-06-18 20:48 | Outpatient (REF) | payer OTHER, SELFPAY ==
--- OUTSIDE RECORDS SUMMARY | 2024-06-18 20:52 | XMS_ITS | CCD ---
Author Organization [facility] Care Team Providers Care Chief Optometry Service Name Role Phone Natanael Taylor Unavailable Unavail able Brandon, Natanael Mcintosh Unavailable Unavail able CRABTREE, YARELI Resendez Unavailable Unavailable Gorty, Bj S Unavailable Unavailable Brandon, Natanael Mcintosh Unavailable Unavail able Brandon, Natanael Mcintosh Unavailable Unavail able CRABTREE, YARELI Resendez Unavailable Unavailable KHRIS, DR PRICE Consulting Unavailable KHRIS, DR PRICE Admitting Unavailable CRABTREE, DR YARELI Resendez Primary Care Unavailable KHRIS, DR PRICE Attending Unavailable KHRIS, DR PRICE Admitting Unavailable CRABTREE, DR YARELI Resendez Primary Care Unavailable KHRIS, DR PRICE Attending Unavailable KHRIS, DR PRICE Consulting Unavailable ZIEBER, DR ALEXX Ellison Consulting Unavailable Unavailable Primary Care Provider Unavailjessica e VERITO, LUCIA Attending Unavailable VERITO, LUCIA Attending Unavailable VERITO, LUCIA Attending Unavailable VERITO, LUCIA Attending Unavailable VERITO, LUCIA Attending Unavailable BRANDON, NATANAEL Loomis Attending Unavailable VERITO, LUCIA Attending Unavailable APLING, CHANELL Armendariz Attending Unavailable Cricket, Sarah Barrett Attending Unavailable Cricket, Sarah Barrett Attending Unavailable Allergies Allergy Classification Reported Allergen(s) Allergy Type Date of Onset Reaction(s) Facility (4 sources) amoxicillin; Translations: [amoxicillin] Drug Allergy 6 Hives, Unknown [facility] Repository Medications Completed/Discontinued Medications Medication Drug Class(es) [...] Test Name Value Interpretation Reference Range Facility Ambulatory Visit Summaryon 0 05-02-2024 Ambulatory Visit Summary Ambulatory Visit Summary KHRIS HERNANDEZ :1980 Visit Date:05/02/2024 Ambulatory Visit Instructions Your Diagnosis Other skin changes BMI 35.0-35.9,adult Class 1 obesity due to excess calories in adult Nonsmoker Your Care Team Attending Physician - Sarah Deutsch Primary Care Physician - Sarah Deutsch Procedures Performed Release of trigger finger, Surgery. Discharge Vitals Temperature (Temporal Artery) 36.7 ?C Heart Rate (Peripheral) 86 Respiratory Rate 16 Blood Pressure 124/78 Height 166.2 cm Height 65 in Weight 97.8 kg Weight 215.16 lb BMI 35.41 Allergies amoxicillin (Hives) Problems Ongoing - Any problem that you are currently receiving treatment for. Heel pain Other skin changes Patient Survey You may receive a survey via text or e-mail asking about your office visit. Please share your experience with us by completing your survey. We appreciate your feedback and thank you for choosing us for your care. [facility] Family Medicine Office/Clini c Noteon 05-02-2024 Family Medicine Office/Clinic Note Family Medicine Office/Clinic Note [facility] Staff Khris is a 43 year old female presenting for acute visit Onset: few years ago where sports bra rubbed on it, sister saw it and says better check it out, it's sore, it cracks open and never totally heals Location: back mid line Characteristics: sore, red/pink and feels scabbed when runs finger on it Aggravated by: bra, did try changing bras but still affects it Relieved by: has tried numerous things on it which helps it scab over but then it just opens up again History of Present Illness pt presents today for area on back that is not healing. has been there for years Review of Systems PHQ Score Initial Depression Screen Score: 0 SCORE Physical Exam Vitals & Measurements T: 36.7 ?C(Temporal Artery) HR: 86(Peripheral) RR: 16 BP: 124/78 HT: 65 in HT: 166.2 cm WT: 97.8 kg WT: 215.16 lb BMI: 35.41 General: alert, no acute distress ENMT: oral mucosa moist, no pharyngeal erythema or exudate Cardiovascular: regular rate and rhythm, normal peripheral perfusion Respiratory: , respirations non labored Extremities: no deformity, no trauma Neurological: oriented x 4, LOC appropriate for age, CN II-XII intact, motor strength equal & normal bilaterally, speech normal josh sized red area is raised and it will open and crack and flake off, bra rubs it and makes it worse Assessment/Plan 1. Other skin changes (R23.8: Other skin changes) Naeem sized red raised area that has scabs that will heal, then flake off then open. she has tried multiple ointments and cream. bra is rubbing on it. pt will call waterproofer of her choice. if she needs a referral she will let me know. 2. BMI 35.0-35.9,adult (Z68.35: Body mass index [BMI] 35.0-35.9, adult) BMI education given 3. Class 1 obesity due to excess calories in adult (E66.09: Other obesity due to excess calories) see above 4. Nonsmoker (Z78.9: Other specified health status) continue not smoking Ordered: meloxicam, 7.5 mg = 1 tab(s), Oral, Daily, # 30 tab(s), Refills(s) 0, Pharmacy: [facility]/pharmacy #[id number], 166.2, cm, 09/12/23 8:30:00 EST, Height/Length Dosing, 109.8, kg, 09/12/23 8:30:00 EST, Weight Dosing Follow-up No qualifying data available Problem List/Past Medical History Ongoing Heel pain Other skin changes Historical No qualifying data Procedure/Surgical History Release of trigger finger, Surgery. Medications No active medications Allergies amoxicillin (Hives) Social History Tobacco Never (less than 100 in lifetime) Tobacco Use:. Never Smokeless Tobacco Use:. Household tobacco concerns: No., 05/02/2024 Family History Cancer: Aunt and Grandparent. Immunizations Vaccine Date Status influenza virus vaccine, inactivated 11/14/2017 Recorded diphtheria/pertussis, acel/tetanus adult 07/25/2017 Recorded influenza virus vaccine, inactivated 07/20/2017 Recorded influenza virus vaccine, inactivated 08/05/2016 Recorded influenza virus vaccine, inactivated 08/12/2014 Recorded [facility] Comment on above: Result Comment: Elec tronically Signed By: Cricket RIDLEY, Sarah Barrett\.br\Date and Time Signed: 05/02/24 10:30 EDT Consultation Noteon 04-11-20 Consultation Note [id number]#1.00TIFF [facility] Outside Mammographyon 2023 Outside Mammography [id number]#1.00TIFF [facility] Consultation Noteon 11-07-19 Consultation Note [id number]#1.00TIFF [facility] Consultation Noteon 10-05-20 Consultation Note [id number]#1.00TIFF [facility] RAD - MISCon 09-28-2023 RAD - MISC [id number]#1.00TIFF [facility] ED Note-Physicianon 11-21-20 23 ED Note-Physician [id number]#1.00TIFF [facility] ED Note-Physician [id number]#1.00TIFF [facility] RAD - MISCon 09-20-2023 RAD - MISC [id number]#1.00TIFF [facility] Ambulatory Visit Summaryon 1 11-12-2022 Ambulatory Visit [...] you for choosing us for your care. [facility] Family Medicine Office/Clini c Noteon 09-12-2023 Family Medicine Office/Clinic Note HPI Staff Khris is a 42 year old female presenting [facility] Establish Care: History: Any previous diagnosis: [...] miserable. will refer to Dr. Garcia in [place]. will order medrol dose pack and antiinflammatory. all questions answered. pt states she has labs done at work every year and her cholesterol and blood sugar were normal. RTC as needed Ordered: meloxicam, 7.5 mg = 1 tab(s), Oral, Daily, # 30 tab(s), Refills(s) 0, Pharmacy: [facility]/pharmacy #[id number], 166.2, cm, 09/12/23 8:30:00 EST, Height/Length Dosing, 109.8, kg, 09/12/23 8:30:00 EST, Weight Dosing methylPREDNISolone, = 1 packet(s), Oral, As Directed, as directed on package labeling, X 6 day(s), # 21 tab(s), Refills(s) 0, Pharmacy: [facility]/pharmacy #[id number], 166.2, cm, 09/12/23 8:30:00 EST, Height/Length Dosing, 109.8, kg, 09/12/23 8:30:00 EST, Weight Dosing 2. BMI 39.0-39.9,adult (Z68.39: Body mass index [BMI] 39.0-39.9, adult) bmi education complete Ordered: meloxicam, 7.5 mg = 1 tab(s), Oral, Daily, # 30 tab(s), Refills(s) 0, [id number], 166.2, cm, 09/12/23 8:30:00 EST, Height/Length Dosing, 109.8, kg, 09/12/23 8:30:00 EST, Weight Dosing methylPREDNISolone, = 1 packet(s), Oral, As Directed, as directed on package labeling, X 6 day(s), # 21 tab(s), Refills(s) 0, [id number], 166.2, cm, 09/12/23 8:30:00 EST, Height/Length Dosing, 109.8, kg, 09/12/23 8:30:00 EST, Weight Dosing 3. Non-smoker (Z78.9: Other specified health status) continue not smoking Ordered: meloxicam, 7.5 mg = 1 tab(s), Oral, Daily, # 30 tab(s), Refills(s) 0, [id number], 166.2, cm, 09/12/23 8:30:00 EST, Height/Length Dosing, 109.8, kg, 09/12/23 8:30:00 EST, Weight Dosing methylPREDNISolone, = 1 packet(s), Oral, As Directed, as directed on package labeling, X 6 day(s), # 21 tab(s), Refills(s) 0, Pharmacy: [facility]/pharmacy #[id number], 166.2, cm, 09/12/23 8:30:00 EST, Height/Length [...] influenza virus vaccine, inactivated 08/12/2014 Recorded Normal [facility] Comment on above: Result Comment: Elec tronically Signed By: Cricket RIDLEY, Sarah Barrett\.br\Date and Time Signed: 09/12/23 09:23 EST PAP ACOG PANEL 2: 30 to 65on 06-24-2022 . . Normal [facility] Comment on above: Result Comment: Perf ormed at: WB Performed By: #### [id number] #### [facility] [address] [address] [address] Radha Angel Age Gdln ACOG Testing 30-65 Normal [facility] Comment on above: Performed By: #### 4 [id number] #### [facility] [address] [address] [address] Radha Angel DIAGNOSIS: Comment Abnormal [facility] Comment on above: Result Comment: EPIT HELIAL CELL ABNORMALITY. ATYPICAL SQUAMOUS CELLS OF UNDETERMINED SIGNIFICANCE (ASC-US). FUNGAL ORGANISMS MORPHOLOGICALLY CONSISTENT WITH INDERJIT SPECIES ARE PRESENT. Performed at: WB Performed By: #### [id number] #### [facility] [address] [address] [address] Radha Angel Electronically signed by: Comment Normal [facility] Comment on above: Result Comment: [place] MD, Pathologist Performed at: WB Performed By: #### 4 [id number] #### [facility] [address] [address] [address] Radha Angel HPV Aptima Negative Normal Negative [facility] Comment on above: Result Comment: This nucleic acid amplification test detects fourteen high-risk HPV types (16,18,31,33,35,39,45,51,52,56,58,59,66,68) without differentiation. Performed at: =G Performed By: #### 4 [id number] #### [facility] [address] [place] [address] Dr. Radha Angel Methodology: Comment Normal [facility] Comment on above: Result Comment: This liquid based ThinPrep(R) pap test was screened with the use of an image guided system. Performed at: WB Performed By: #### 4 [id number] #### [facility] [address] [place] [address] Dr. Radha Angel Note: Comment Normal [facility] Comment on above: Result Comment: The Pap smear is a screening test designed to aid in the detection of premalignant and malignant conditions of the uterine cervix. It is not a diagnostic procedure and should not be used as the sole means of detecting cervical cancer. Both false-positive and false-negative reports do occur. . Performed at: WB Performed By: #### 4 [id number] #### [facility] [address] [place] [address] Dr. Radha Angel Pathologist Provided ICD10 Comment Normal [facility] Comment on above: Result Comment: R87. 610, R87.5 Performed at: WB Performed By: #### 4 [id number] #### [facility] [address] [place] [address] Dr. Radha Angel Performed by: Comment Normal [facility] Comment on above: Result Comment: Juanito Clemens [employer] Machine Operator (ASCP) Performed at: WB Performed By: #### 4 [id number] #### [facility] [address] [place] [address] Dr. Radha Angel Recommendation: Comment Abnormal [facility] Comment on above: Result Comment: Sugg est follow up as clinically appropriate. Performed at: WB Performed By: #### 4 [id number] #### [facility] [address] [place] [address] Dr. Radha Angel Specimen adequacy: Comment Normal [facility] Comment on above: Result Comment: Sati sfactory for evaluation. Endocervical and/or squamous metaplastic cells (endocervical component) are present. Performed at: WB Performed By: #### 4 [id number] #### [facility] [address] [address] [address] Radha Angel MG MAMM SCREEN 3D SHALOM CADon 06-01-2022 MG MAMM SCREEN 3D SHALOM CAD Patient: KHRIS HERNANDEZ Exam Date: 06/01/2022 : 1980 Gender:F Ordering : DR DEE COLE . Admission #: [id number] Family : Order #: [id number] CLICK HERE TO VIEW EXAM RADIOLOGY REPORT [...] breast cancer at age 68. LOCATION: [facility] BREAST COMPOSITION: Extremely dense, which lowers the [...] Mendez M.D. on 06/01/2022 at 15:17 Normal [facility] Intraoperative Noteon 2017 Intraoperative Note [id number]#1.00[facility] and Physicalon 03-01 History and Physical [id number]#1.00OTGTIFF [facility] Provider Orderson 03-01-2018 Provider Orders [id number]#1.00[facility] Coding Summaryon 01-10-2018 Coding Summary CODING DATE: 018 [facility] STATUS: Home PAYOR: Commercial Insurance APC DESCRIPTION 5431 Level 1 Nerve Procedures ADMIT DX: REASON FOR VISIT DX: G56.02 Carpal tunnel syndrome, left upper limb M65.332 Trigger finger, left middle finger FINAL DX: PRINCIPAL: G56.02 Carpal tunnel syndrome, left upper limb SECONDARY: M65.332 Trigger finger, left middle finger PYMT PROC APC STAT DESCRIPTION DOCTOR NAME DATE 89914 543 J1 Neuroplasty and/or Natanael Taylor And 01/09/2018 transposition; median nerve at carpal tunnel LT Left side (used to identify procedures performed on the left side of the body) 73077 Tendon sheath incision Natanael Taylor And 01/09/2018 (eg, for trigger finger) F2 Left hand, third digit NOTE: The code number assigned matches the documented diagnosis and / or procedure in the patient's chart. However, the narrative phrase printed from the coding software may appear abbreviated, or result in slightly different terminology. Coded By: Hannah Rodriguez Date Saved: 01/10/2018 01:39 pm [facility] Consent Formson 01-10-2018 Consent Forms [id number]#1.00[facility] Anesthesia Noteon 01-09-2018 Anesthesia Note Patient: ME SHELDON HERNANDEZ : 37 years Sex: FEMALE : [birth year]Associated Diagnoses: NoneAuthor: Gorty, Bj S MDPostoperative InformationPost Operative Note: Post Anesthesia Care [...] on: 01/09/2018 11:14 EDT] Bj Cuellar MD [facility] Anesthesia Note Patient: ME SHELDON HERNANDEZ : 37 years Sex: FEMALE : [birth year]Associated Diagnoses: NoneAuthor: Bj Cuellar MDPreoperative InformationAnesthesia history: Patient history: No difficult intubation, No malignant hyperthermia. Family history: No malignant hyperthermia.Review of SystemsRespiratory: No shortness of breath, No apnea.Cardiovascular: No known VA, No chest pain.Gastrointestinal: No heartburn.Health StatusAllergies:Allergic Reactions (All)Severity Not DocumentedAmoxicillin- Hives.Current medications:No qualifying data availableProblem list (past medical history):All ProblemsH/O fracture of wrist / SNOMED CT [id number] / ConfirmedHistoriesFamily History:No family history items have [...] (JAN 09 08:)SBP H 145 mmHg (JAN 09 08:15)DBP H 94 mmHg (JAN 09 08:)SpO2 98 % (JAN 09 08:05)General: Alert and oriented, No acute distress.Airway: Mallampati [...] 01/09/2018 08:25 EDT] Bj Cuellar MD Normal [facility] Inpatient Clinical Summaryon 01-09-2018 Inpatient Clinical Summary [facility] SURGERYClinical Discharge SummaryPERSON INFORMATIONName FRANKHRIS Porter Age 37 Years 76Sex FEMALE Language Togolese PCP Arsh CRABTREE [facility] 15-82-28 Acct# Arrival 01/09/18 07:23:04Visit Reason SURGERY - RELEASE LEFT CARPAL TUNNEL AND TRIGGER FINGER LEFT MIDDLE FINGER Acuity LOS 039 21:44Address:[address] [place] [id number]:PROVIDER INFORMATIONVITALS INFORMATIONVital Sign Triage LatestTemp OralTemp TemporalTemp IntravascularTemp AxillaryTemp Dolvqm34 Sat 98 % 99 %Respiratory Rate 16 [...] INFORMATIONDischarge Disposition:Discharge Location:DEPART REASON INCOMPLETE INFORMATIONPATIENT EDUCATION INFORMATIONInstructions:Bon jacob- Post Op Carpal Tunnel ([facility])Follow up:With: Address: When:CHANELL Ng [facility], [facility] [address] [place] [address] Business (1) 01/18/2018 9:00 AMWith: Address: When:YARELI CRABTREE [address] [place] [address] Business (1)DIAGNOSISCarpal tunnel syndrome on left; Trigger finger, left middle fingerComment:PHYS DOC NOTES Normal [facility] Inpatient Patient Summaryon 01-09-2018 [place] [address] patient Discharge InstructionsName: KHRIS HERNANDEZ MDOB: [birth year] Address: [address] [place] [address] Care Provider:Name: SHANTIYARELIPhone: After you are discharged if you find you have any questions, please, call [phone] ext [phone] to speak to a nurse.Discharge Diagnosis: Carpal [...] or business decisions or sign any legal documentsUniversity Hospitals [facility] would like to thank you for allowing us to assist you with your healthcare needs. The following includes patient education materials and information regarding your injury/illness.KHRIS HERNANDEZ has been given the following list of follow-up instructions, prescriptions, and patient education materials:Follow-up InstructionsWith: Address: When:CHANELL [facility], [address] [place] [address] Business (1) 01/18/2018 9:00 AMWith: Address: When:YARELI CRABTREE [address] [facility] [place] [address] Business (1)MedicationsDuring the course of your visit, [...] while awake-DO NOT lift heavy objects or lab systems analyst forcefully with your hand-Change your dressing in [...] or concerns, please call the office at [phone]-Follow up as scheduledViruses or BacteriaWhat?s got you [...] Antibiotics [place] Department of Health and Human ServicesDunlap Memorial Hospitalers for Disease Control and Prevention July 2014 [facility] MAGR Intraoperative Recordon 01-09-2018 MAGR Intraoperative Record MAGR Intra-Op Record Summary Primary Physician: Natanael Taylor DO Finalized Date/Time: 01/09/18 11:09:48 Pt. Name: KHRIS HERNANDEZ Sanna /Sex: 1980 FEMALE Med Rec #: [id number] Physician: Natanael Taylor DO Financial #: [id number] Pt. Type: D Room/Bed: / Admit/Disch: 01/09/18 07:23:04 - Institution: Case Times MAGR Entry 1 Patient In Room Time 01/09/18 09:31:00 Out Room Time 01/09/18 10:17:00 Anesthesia Start Time 01/09/18 09:31:00 Stop Time 01/09/18 10:17:00 Surgery Start Time 01/09/18 09:49:00 Stop Time 01/09/18 10:10:00 Last Modified By: Alina Kilpatrick RN 01/09/18 10:18:21 Case Attendance MAGR Entry 1 Entry 2 Entry 3 Case Attendee Natanael Taylor Satya S MD Sauer, Stephanie RN Andrew DO Role Performed Surgeon - Primary Anesthesiologist of Direct Mail Clerk Record Time In 01/09/18 09:31:00 01/09/18 09:31:00 01/09/18 09:31:00 Time Out 01/09/18 10:17:00 01/09/18 10:17:00 01/09/18 10:17:00 Procedure Carpal Tunnel Carpal Tunnel Carpal Tunnel Release(Left), Trigger Release(Left), Trigger Release(Left), Trigger Finger Release(Left) Finger Release(Left) Finger Release(Left) Last Modified By: Alina Kilpatrick RN, Stephanie RN Sauer, Stephanie RN 01/09/18 10:18:25 01/09/18 10:18:25 01/09/18 10:18:45 Entry 4 Entry 5 Case Attendee BOARD [employer] DRIVER, XENA Radloff, Francisca-Soniya [employer] DRIVER Role Performed Utility Accounts Director Scrub Personnel Time In 01/09/18 09:31:00 01/09/18 [...] Release Primary Procedure Yes No Primary Surgeon Natanael Taylor James Andrew DO Andrew DO Modifiers Left Left Surgeon Comment RELEASE LEFT CARPAL RELEASE LEFT CARPAL TUNNEL AND TRIGGER TUNNEL AND TRIGGER FINGER LEFT MIDDLE FINGER LEFT MIDDLE FINGER FINGER Start 01/09/18 09:49:00 01/09/18 09:49:00 Stop 01/09/18 10:10:00 01/09/18 10:10:00 Anesthesia Type [facility] Surgical Service Orthopedics Orthopedics Wound Class Clean [...] Time 01/09/18 09:30:00 Performed By Ang Ya CST Counts Verification Final Counts Items Included in Sponges, Sharps Final Count Method Manual Final Count Final Count Status Correct Final Counts Alina Kilpatrick RN, Performed By Ang Ya CST Final Count Time 01/09/18 10:04:00 Surgeon notified [...] By Alina Kilpatrick RN Removed By BOARD [employer] DRIVER, XENA Outcome Met (O.60) Yes Last Modified [...] SubQ TOP Dose Volume 8 mL By Natanael Taylor James Andrew DO Andrew DO Outcome [...] Unfinalizing Freetext Reason for Unfinalizing 01/09/18 11:08 SSAUER Modify Pick List [facility] MAGR Postoperative Recordon 01-09-2018 MAGR Postoperative Record MAGR Phase II Record Summary Primary Physician: Natanael Taylor DO Finalized Date/Time: 01/09/18 11:54:57 Pt. Name: KHRIS HERNANDEZ/Sex: 1980 FEMALE Med Rec #: [id number] Physician: Natanael Taylor DO Financial #: [id number] Pt. Type: D Room/Bed: / Admit/Disch: 01/09/18 [...] Signed By: Belia Emmanuel RN 01/09/18 11:54 [facility] MAGR Preoperative Recordon 0 01-09-2018 MAGR Preoperative Record MAGR Pre-Op Record Summary Primary Physician: Natanael Taylor DO Finalized Date/Time: 01/09/18 10:24:11 Pt. Name: KHRIS HERNANDEZ Sanna Light/Sex: 1980 FEMALE Med Rec #: [id number] Physician: Natanael Taylor DO Financial #: [id number] Pt. Type: D Room/Bed: / Admit/Disch: 01/09/18 [...] consent correct. General Comments: Pt arrives to w ambulatory. Pt denies any pain, cp, sob, cough or flu like symptoms. Pt denies pacemaker/defibillator or sleep apnea. Finalized By: Belia Emmanuel RN Document Signatures Signed By: Belia Emmanuel RN 01/09/18 10:24 [facility] Operative Report - Surgeon/P armida 01-09-2018 [...] appositionComplications: None[Electronically Signed on: 01/09/2018 11:20 EDT] BrandonNatanael DO[Verified on: 01/09/2018 11:20 EDT] ValentinojoseNatanael hess DO [facility] Test Urine 1on U Preg Negative [facility] Comment on above: Performed By: #### [id number] ####[facility] (DEFAULT)[address] [place] [id number] U Preg Internal Control Pass [facility] Comment on above: Performed By: #### 3 [id number] ####[facility] (DEFAULT)[address] [place] [address] Progress Note - Nurseon Progress Note - Nurse Spoke with pt and informed her to be here at 0730 and NPO after MN, she verbalizes understanding.[Electronicall y Signed on: 01/06/2018 09:54 EST] Belia Emmanuel RN[Verified on: 01/06/2018 09:54 EST] Belia Emmanuel RN [facility] Vital Signs Date Time Vital Sign Value Performing Clinician Genie koroma 12-07-2023 15:40-0500 Body mass index (BMI) [Ratio] 38.29 kg/m2 Lucia STROUD Work Phone: [facility] 12-07-2023 15:40-0500 Body weight 104.37 kg Lucia STROUD Work Phone: [facility] 12-07-2023 15:40-0500 Diastolic blood pressure 80 mm[Hg] Lucia STROUD Work Phone: [facility] 12-07-2023 15:40-0500 Systolic blood pressure 130 mm[Hg] Lucia STROUD Work Phone: [facility] Encounters Encounter Date Encounter Type Care Provider Facility Start: 05-02-2024 End: 05-02-2024 ambulatory Sarah L Cricket Facility:[facility] Start: 04-11-2024 End: 04-11-2024 ambulatory CHANELL THOMAS Not Available Start: 03-06-2024 End: 03-06-2024 ambulatory NATANAEL TAYLOR Not Available Start: 02-01-2024 End: 02-01-2024 ambulatory LUCIA VERITO Not Available Start: 01-04-2024 End: 01-04-2024 ambulatory LUCIA VERITO Not Available Start: 12-07-2023 End: 12-07-2023 ambulatory LUCIA VERITO Not Available Start: 12-07-2023 End: 12-07-2023 Office outpatient visit 15 minutes Lucia STROUD Work Phone: [facility] Comment on above: Encounter for weight management Start: 11-09-2023 End: 11-09-2023 ambulatory LUCIA VERITO Not Available Start: 10-12-2023 End: 10-12-2023 ambulatory LUCIA VERITO Not Available Start: 09-14-2023 End: 09-14-2023 ambulatory LUCIA VERITO Not Available Start: 09-12-2023 End: 09-12-2023 ambulatory Sarah L Cricket Facility:[facility] Start: 09-02-2023 ambulatory Sarah Cricket [facility] Start: 06-17-2022 End: 06-17-[address] DEE COLE Facility:[facility] Start: 06-01-2022 End: 06-02-[address] DEE COLE Facility:[facility] Start: 01-09-2018 End: 01-09-[address] [facility] Facility:[facility] Start: 12-20-2017 End: 12-20-[address] [facility] Facility:[facility] Plan of Treatment Date Care Activity Detail Author Start: 01-04-2024 End: 01-04-2024 Patient encounter procedure 01/04/2024 3:40 PM EST Office Visit [facility] [address] [place] [id number] Lucia Ayers PA [address] [place] [address] [facility] Payers Date Payer Category Payer Unknown [employer] [id number] 2023-Present [address] [place] [address] [id number] 1978 Unknown [id number] [id number] 1978 Unknown [id number] 2.16.840.1.130856.3.579.2.593 1978 Unknown [id number] 2.16.840.1.792367.3.579.2.1259 1978 Unknown [id number] 2.16.840.1.022853.3.579.2.1259 1978 Unknown [id number] 2.16.840.1.153265.3.579.2.1259 1978 Unknown [id number] 2.16.840.1.524737.3.579.2.1259 1978 Unknown [id number] 2.16.840.1.010570.3.579.2.1259 1978 Unknown [id number] 2.16.840.1.198506.3.579.2.1259 1978 Unknown [id number] 2.16.840.1.857957.3.579.2.1259 1978 Unknown [id number] 2.16.840.1.834550.3.579.2.1259 1978 Unknown [id number] 2.16.840.1.479111.3.579.2.727 1978 Unknown [id number] 2.16.840.1.178195.3.579.2.727 1959 Unknown [id number] Social History Date Type Detail Facility Start: 06-15-2023 Tobacco smoking status NHIS Never sm oked tobacco [facility] Start: [...] Sex Assigned At Not on file [facility] History of Present illness Narrative 12-07-2023 [...] section and content) DATE CREATED AUTHOR 04/19/2018 [facility] DATE CREATED AUTHOR AUTHOR'S ORGANIZ ATION 06/26/2022 [facility] DATE CREATED AUTHOR AUTHOR'S ORGANIZ ATION 04/12/2024 [facility] EPIC DATE CREATED AUTHOR AUTHOR'S ORGANIZ ATION 05/04/2024 [facility] Reason for Visit (unrecogniz ed section and [...] BE BASED ON THE PRIMARY CLINICAL RECORDS. [employer] [facility]. provides no warranty or guarantee of the accuracy or completeness of information in this document.
[2024-06-22 16:10] LABS: Age Gdln ACOG Testing Note (.); HPV Aptima Negative (Negative); IGP, Aptima HPV, rfx 16/18,45 Note (.)
== END 2024-06-18 20:49 | disposition home or self-care (01) ==
LOC: LAB 20:48
PROVIDERS: PCP Nurse Practitioner; Visit Provider Physician Assistant
DX: Z01.419 Encounter for gynecological examination (general) (routine) without abnormal findings (principal)
CPT/HCPCS: 88175

== ENCOUNTER 2025-10-03 07:35 | Outpatient (OUT) | payer OTHER, SELFPAY ==
--- OUTSIDE RECORDS SUMMARY | 2014-08-11 19:00 | XMS_ITS | Continuity of Care Document ---
Author Organization [facility] Address [address] [place] [address] Phone Care Team Providers Care Visual Lead Name Role Phone Masoud OGDENWong Unavailable Unavailable Procedures Procedure Date FLU VAC NO PRSV 4 MACY 3 YRS+ OFFICE/OUTPATIENT VISIT, [facility] Advance Directives Directive Yes / No Effective Date File Name Resuscitation Not Answered N/A N/A Life Support Not Answered N/A N/A Intubation Not Answered N/A N/A Antibiotics Not Answered N/A N/A IV Fluid Support Not Answered N/A N/A Tube Feed Not Answered N/A N/A Other Directive N/A N/A WARNING:The information contained in this section is historical and is provided for information only and does not constitute a legal document or any assurance that the information is still accurate. Please verify the information with the blount of the legal document before using it for clinical purposes. Encounters Encounter Description Practice Location Reason(s) For Visit Diagnoses Date Provider Providers Copied on Encounter OFFICE/OUTPATI ENT VISIT, EST [facility], [address] [place] [address], [id number], [place] tel:[phone] [employer] Influenza Vaccine Masoud DO Back. [address], [place], [id number], [place]. tel:[phone] Family History Family Member Type Diagnosis Age At Onset No Information Immunizations Vaccine Date Status Comments Flu (split) (3 yrs or older) administered Source: New Immunization Record Flu (split) (3 yrs or older) administered Source: New Immunization Record Flu (split) (3 yrs or older) administered Source: New Immunization Record Flu (split) (3 yrs or older) administered Source: New Immunization Record Flu (split) (3 yrs or older) administered Source: New Immunization Record Flu (split) (3 yrs or older) administered Source: New Immunization Record Flu (split) (3 yrs or older) administered Source: New Immunization Record Flu (split) (3 yrs or older) administered Source: New Immunization Record Flu (split) (3 yrs or older) administered Source: New Immunization Record Flu (split) (3 yrs or older) administered Source: New Immunization Record Flu (split) (3 yrs or older) administered Source: New Immunization Record Flu (split) (3 yrs or older) administered Source: New Immunization Record Flu (split) (3 yrs or older) administered Source: New Immunization Record Payers Payer name Insurance type Covered constitution party ID Authoriza tion(s) No Information Social History Type Description Quantity Date Captured Comments Alcohol Use Details Unknown Caffeine Use Details Unknown Tobacco Use Status No Information Smoking Status No Information Sex Female Chief Complaint And Reason For Visit No Information Reason For Referral Reason For Referral No Information History Of Present Illness Encounter Date Complaint History Of Prese nt Illness No Information Functional Status Date Functional Assessmen t No Information Instructions Date Instruction Additional Infor mation No Information Assessments Type Assessment Date No Information Patient Care Teams Name Effective Dates (start - stop) Status Members No Information
--- NOTE | 2025-10-03 | XR_ITS ---
[address] [address] Patient Name: KHRIS GOFF MRN: [id number] date: 1980 Sex: F Assigned Patient Location: [facility] Current Patient Location: [facility] Accession/Order Number: [id number] Exam Date: 10/03/2025 09:40 Report Date: 10/03/2025 10:09 At the request of: ZULEIMA MCLEOD DO Procedure: XR knee RT 4V CLINICAL DATA: Right knee pain after feeling a pop a couple weeks ago. Left knee comparison. RIGHT KNEE - 4 views COMPARISON: None Weightbearing AP, patellar, tunnel and lateral views were obtained. No acute fracture or dislocation is identified. There may be slight lateral patellar subluxation. There is minimal medial tibiofemoral joint compartment narrowing. No significant hypertrophy is seen. There is a trace of joint fluid. No focal soft tissue swelling is noted. XR/XR knee LT 2V IMPRESSION: NO ACUTE BONY FINDINGS. LEFT KNEE - 2 views COMPARISON: None Weightbearing AP and patellar views were obtained. There is no acute fracture or dislocation. No patellar subluxation is noted. No soft tissue abnormalities are present. IMPRESSION: NO ACUTE BONY FINDINGS. Impression dictated by: Jailyn Park M.D. 10/03/2025 10:09 AM Dictation Location: [place] [address] Electronically authenticated by: [id number] Y Date: 10/03/2025 10:09
--- NOTE | 2025-10-03 | XR_ITS ---
[address] [address] Patient Name: KHRIS GOFF MRN: [id number] date: 1980 Sex: F Assigned Patient Location: [facility] Current Patient Location: [facility] Accession/Order Number: [id number] Exam Date: 10/03/2025 09:40 Report Date: 10/03/2025 10:09 At the request of: ZULEIMA MCLEOD DO Procedure: XR knee RT 4V CLINICAL DATA: Right knee pain after feeling a pop a couple weeks ago. Left knee comparison. RIGHT KNEE - 4 views COMPARISON: None Weightbearing AP, patellar, tunnel and lateral views were obtained. No acute fracture or dislocation is identified. There may be slight lateral patellar subluxation. There is minimal medial tibiofemoral joint compartment narrowing. No significant hypertrophy is seen. There is a trace of joint fluid. No focal soft tissue swelling is noted. XR/XR knee RT 4V IMPRESSION: NO ACUTE BONY FINDINGS. LEFT KNEE - 2 views COMPARISON: None Weightbearing AP and patellar views were obtained. There is no acute fracture or dislocation. No patellar subluxation is noted. No soft tissue abnormalities are present. IMPRESSION: NO ACUTE BONY FINDINGS. Impression dictated by: Jailyn Park M.D. 10/03/2025 10:09 AM Dictation Location: [place] [address] Electronically authenticated by: [id number] Y Date: 10/03/2025 10:09
--- OUTSIDE RECORDS SUMMARY | 2025-10-03 07:37 | XMS_ITS | Clinical Summary ---
Author Organization [facility] tem Address [id number] [address] [place] [address] Care Team Providers Care Senior Catering Sales Manager Name Role Phone Valeri Crabtree MD Primary Care Provider [phone] Allergies Active AllergyReactionsCriticalityNoted VtmjMzlwshorGjtcsqrdzkwNzatFxj54/03/2020 Medications MedicationSigDispense QuantityRefillsLast FilledStart DateEnd DateStatus omega-3 fatty acids-fish oil 300-1,000 mg capsule Take 2 capsules (2 g total) by mouth in the morning.Active Active Problems No known active problems Social History Tobacco UseTypesPacks/DayYears UsedDateSmoking Tobacco: FormerSmokeless Tobacco: NeverAlcohol UseStandard Drinks/WeekCommentsYes0 (1 standard drink = 0.6 oz pure alcohol)ONCE A MONTHChildcareAnswerDate YjvmpgcnNqhzpxdbjKcskcsk02/22/2020 EmploymentAnswerDate PbkqeymxBfcepsejaiIxlowaw56/22/2020Purpose - LifeAnswerDate RecordedPurpose and direction in mxdiBijlvbd33/11/2021CommentsUnknownSex and Gender InformationValueDate RecordedSex Assigned at BirthNot on fileLegal WolDzqhfg76/22/2020 9:16 AM ESTGender IdentityNot on fileSexual OrientationNot on file Last Filed Vital Signs Vital SignReadingTime TakenCommentsBlood Rneolyzv127/80012/26/2019 3:32 PM EST Pulse--Temperature--Respiratory Rate--Oxygen Saturation--Inhaled Oxygen Concentration--Kmgjxl64.7 kg (189 lb)12/26/2019 3:32 PM AWAWqubiy286.1 cm (5' 5 )12/26/2019 3:32 PM ESTBody Mass Index31.4502/ 3:32 PM EST Plan of Treatment Health MaintenanceDue DateLast DoneCommentsDepression Ucsoqxijy91/29/1991Adult BMI Cemzefsdc67/29/1997Pap Smear1999Tobacco Fxccvbxwf59/02/2024 Influenza Tnlqqhx17/01/062701/, 07/20/2017, 08/05/2016, Additional history existsDTaP,Tdap and Td Vaccines (2 - Td or Tdap) Medical Devices Not on file Insurance MemberSubscriberPlan / Payer (Effective 2014-Present)Name:MartyelianSonia frazier Kimberly Relation to Subscriber:SelfName:HoraciofreddieSonia Payer ID:Not on file Type:Not on file Address: [place] [id number] Care Teams Team MemberRelationshipSpecialtyStart DateEnd Valeri Crabtree MD PCP - GeneralFamily Medicine11/21/19
--- OUTSIDE RECORDS SUMMARY | 2025-10-03 07:37 | XMS_ITS | Clinical Summary ---
Author Organization [facility] Address [address] [place] [address] Care Team Providers Care Engineering Technical Writer Name Role Phone Bryson Acosta MD Primary Care Provider [phone] Allergies Active AllergyReactionsCriticalityNoted DateCommentsAmoxicillinHives,Unknown 12/03/2019 Other Reaction(s): Unknown Medications MedicationSigDispense QuantityRefillsLast FilledStart DateEnd DateStatus metFORMIN XR (Glucophage-XR) 500 MG 24 hr tablet Indications:Encounter for weight managementTake 1 tablet (500 mg) by mouth in the evening. Take with meals Do not crush, chew, or split. 30 tablet 11006/18/2024ctive Active Problems ProblemNoted DateDiagnosed MqbgDnwfzmd64/06/3317Zptjqws12/06/2024 Immunizations ImmunizationAdministration DatesNext DueInfluenza, injectable, quadrivalent, preservative free11/14/2017,07/20/2017,08/05/2016Influenza, seasonal, injectable, preservative free08/12/2014Tdap07/25/2017 Family History Medical HistoryRelationNameCommentsHyperlipidemiaFatherHypertensionFather RelationNameStatusCommentsFatherAliveMotherAliveSon 1AliveSon 2Alive Social History Tobacco UseTypesPacks/DayYears UsedDateSmoking Tobacco: NeverSmokeless Tobacco: Never Tobacco Cessation:Counseling Given: Not Answered Alcohol UseStandard Drinks/WeekCommentsYes0 (1 standard drink = 0.6 oz pure alcohol)Occasional alcohol useAUDIT-CAnswerDate RecordedQ1: How often do you have a drink containing alcohol?Monthly or less11/14/2023Average Number of DrinksNot on file09/13/2023Frequency of Binge DrinkingNot on file09/13/2023 CommentsNoSex and Gender InformationValueDate RecordedSex Assigned at BirthNot on fileLegal IzlNbelow55/15/2023 7:26 PM EDTGender IdentityNot on file Sexual OrientationNot on file Last Filed Vital Signs Vital SignReadingTime TakenCommentsBlood Juozkdxy196/8008 2:05 PM EDT Pulse--Temperature--Respiratory Rate--Oxygen Saturation--Inhaled Oxygen Concentration--Olwauv33.2 kg (209 lb 12.8 oz)06/18/2024 2:05 PM ERSKjnafx034.1 cm (5' 5 )03/06/2024 1:12 PM EDTBody Mass Index34.9103/06/2024 1:12 PM EDT Plan of Treatment Not on file Insurance Care Teams Team MemberRelationshipSpecialtyStart DateEnd Bryson Acosta MD [address] [place] [address] PCP - GeneralFamily Medicine03/06/24
--- OUTSIDE RECORDS SUMMARY | 2025-10-03 07:37 | XMS_ITS | CCD ---
Author Organization [facility] Care Team Providers Care Mission Manager Name Role Phone Natanael Taylor Unavailable Unavail able Brandon, Natanael Mcintosh Unavailable Unavail able CRABTREE, YARELI Resendez Unavailable Unavailable Gorty, Bj S Unavailable Unavailable Brandon, Natanael Mcintosh Unavailable Unavail able Brandon, Natanael Mcintosh Unavailable Unavail able CRABTREE, YARELI E Unavailable Unavailable KHRIS, DR PRICE Consulting Unavailable KHRIS, DR PRICE Admitting Unavailable CRABTREE, DR YARELI Resendez Primary Care Unavailable KHRIS, DR PRICE Attending Unavailable KHRIS, DR PRICE Admitting Unavailable CRABTREE, DR YARELI Resendez Primary Care Unavailable KHRIS, DR PRICE Attending Unavailable KHRIS, DR PRICE Consulting Unavailable ZIEBER, DR EVA Ellison Consulting Unavailable Unavailable Primary Care Provider UnavailLUCIA Meléndez Attending Unavailable ARMEN, LUCIA Attending Unavailable ARMEN, LUCIA Attending Unavailable ARMEN, LUCIA Attending Unavailable ARMEN, LUCIA Attending Unavailable BRANDON, NATANAEL Loomis Attending Unavailable APLINGCHANELL Attending Unavailable JOCELINE NEAL Attending Unavailable ARMEN, LUCIA Attending Unavailable LUCIA SELLERS Attending Unavailable MD Ashok Nam Attending Provider [phone] ALLISON Neal Primary Care Provider [phone] Ashok Nam Attending Unavailable Ashok Nam Admthalia Unavailable Joceline Neal Primary Care Unavailable Bryson Acosta Attending Unavailable KHAI Singh Attending Unavailable KHAI Singh Attending Unavailable Bryson Acosta MD Primary Care Provider Lucia Montiel Unavailable Lucia Montiel Unavailable Allergies Allergy ClassificationReported Allergen(s)Allergy TypeDate of OnsetReaction(s) Facility (6 sources)amoxicillin; Translations: [amoxicillin]Drug Rfmvrmg20-28-8689WsdfbSouthern [facility] Rep[facility] Medications Current Medications MedicationDrug Class(es)DatesSig (Normalized)Sig (Original)24 hr metFORMIN hydrochloride 500 mg extended release oral tablet (1 source)BiguanideStart: 06-18-2024 End: 32-97-5869bydl 1 tablet by mouth every twenty-four hours at mealtime metFORMIN XR (Glucophage-XR) 500 MG 24 hr tablet Indications: Encounter for weight management Take 1 tablet (500 mg) by mouth in the evening. Take with meals Do not crush, chew, or split. 30 tablet 11 06/18/2024 06/13/2025 Active Completed/Discontinued Medications MedicationDrug Class(es)DatesSig (Normalized)Sig (Original)meloxicam 7.5 mg oral tablet (1 source)Nonsteroidal Anti-inflammatory DrugStart: 09-12-2023 End: 16-98-6096llxmzkfqn (Mobic) 7.5 MG tablet Take 7.5 mg by mouth. 0 09/12/2023 12/07/2023 Discontinuedphentermine hydrochloride 37.5 mg oral tablet (4 sources)Sympathomimetic Amine AnorecticStart: 09-14-2023 End: 73-14-0846kxnn 1 tablet by mouth before mealtimephentermine (Adipex-P) 37.5 MG tablet Indications: Encounter for weight management Take 1 tablet (37.5 mg) by mouth in the morning. Take before meals. 30 tablet 0 11/09/2023 12/07/2023 Discontinued Problems Problem ClassificationProblemDateDocumented DateEpisodic/Chronic Administrative/social admission (1 source)Patient encounter status; Translations: [Persons encountering health services in other specified circumstances]14-59-0116WctyyjlwPsfijdx disorders (2 sources)Anxiety; Translations: [Anxiety disorder, unspecified]Onset: [id number] and screening for infectious disease (1 source)Encounter for screening for human papillomavirus (HPV); Translations: [ENC SCREENING HUMAN PAPILLOMAVIRUS]Onset: 80-75-9798XfrvsgqzPwtzt non- epithelial cancer of skin (1 source)Basal cell carcinoma of skin of other part of trunk; Translations: [Basal cell carcinoma of skin ofother part of trunk]Onset: 99-39-7789Qioxpiav Other nutritional; endocrine; and metabolic disorders (2 sources)Obesity; Translations: [Obesity, unspecified]Onset: 03-05-2024 93-60-3510WryaqfvQgewu screening for suspected conditions (not mental disorders or infectious disease) (8 sources)Encounter for screening for malignant neoplasm of cervix; Translations: [Encounter for screening mammogram for malignant neoplasm of breast]Onset: 36-48-2496KcyqtusdWiladwhb codes; unclassified (1 source)Family history of malignant neoplasm of breast; Translations: [FAMILY HX MALIG NEOPLASM OF BREAST]Onset: 86-23-1503Vhdlgqku Results Test NameValueInterpretationReference RangeFacilityFamily Medicine Office/Clinic Noteon 50-72-5084Yntpet Medicine Office/Clinic NoteFamily Medicine Office/Clinic Note HPI Staff Sonia is a 43 year old female presenting for acute visit Acute: check area on back where spot was removed a month ago, hasn't healed from the excision and she will not go back there, the area is sore, still seeping on her but feels it is doing better just wants it checked out History of Present Illness See staff HPI. Review of Systems PHQ Score Initial Depression Screen Score: 1 SCORE Physical Exam Vitals & Measurements T: 36.8 ?C(Temporal Artery) HR: 80(Peripheral) RR: 16 BP: 124/80 SpO2: 99% HT: 65 in HT: 166.2 cm WT: 96.4 kg WT: 212.08 lb BMI: 34.9 Please see clinical photo Procedure Images [Image Removed: 2024-08-20 16:37:01]2024-08-20 16:37:01 Assessment/Plan 1. Nonhealing surgical wound (T81.89XA: Other complications of procedures, not elsewhere classified, initial encounter) Discussed dressing. Discussed keeping it dry and we will refer if no improvement. Abx to keep it from getting infected. If no improvement again we will send to Derm. Ordered: doxycycline, 100 mg = 1 cap(s), Oral, BID, # 20 cap(s), Refills(s) 0, Pharmacy: [facility]/pharmacy #[id number],166.2, cm, 08/20/24 16:25:00 EDT, Height/Length Dosing, 96.4, kg, 08/20/24 16:25:00 EDT, Weight Dosing 2. BMI 34.0-34.9,adult (Z68.34: Body mass index [BMI] 34.0-34.9, adult) BMI education added Ordered: doxycycline, 100 mg = 1 cap(s), Oral, BID, # 20 cap(s), Refills(s) 0, Pharmacy: [facility]/pharmacy #[id number],166.2, cm, 08/20/24 16:25:00 EDT, Height/Length Dosing, 96.4, kg, 08/20/24 16:25:00 EDT, Weight Dosing 3. Exogenous obesity (E66.09: Other obesity due to excess calories) Diet and exercise advised Ordered: doxycycline, 100 mg = 1 cap(s), Oral, BID, # 20 cap(s), Refills(s) 0, Pharmacy: [facility]/pharmacy #[id number],166.2, cm, 08/20/24 16:25:00 EDT, Height/Length Dosing, 96.4, kg, 08/20/24 16:25:00 EDT, Weight Dosing 4. Nonsmoker (Z78.9: Other specified health status) Please continue to not smoke. Ordered: doxycycline, 100 mg = 1 cap(s), Oral, BID, # 20 cap(s), Refills(s) 0, Pharmacy: [facility]/pharmacy #[id number],166.2, cm, 08/20/24 16:25:00 EDT, Height/Length Dosing, 96.4, kg, 08/20/24 16:25:00 EDT, Weight Dosing Follow-up No qualifying data available Problem List/Past Medical History Ongoing Heel pain Other skin changes Historical No qualifying data Procedure/Surgical History Release of trigger finger, Surgery. Medications doxycycline hyclate 100 mg Cap, 100 mg= 1 cap(s), Oral, BID Allergies amoxicillin (Hives) Social History Alcohol Never., 08/20/2024 Substance Abuse Never., 08/20/2024 Tobacco Never (less than 100 in lifetime) Tobacco Use:., 08/20/2024 Family History Cancer: Aunt and Grandparent. Immunizations Vaccine Date Status influenza virus vaccine, inactivated 11/14/2017 Recorded diphtheria/pertussis, acel/tetanus adult 07/25/2017 Recorded influenza virus vaccine, inactivated 07/20/2017 Recorded influenza virus vaccine, inactivated 08/05/2016 Recorded influenza virus vaccine, inactivated 08/12/2014 RecordedNoUniversity Hospitals Beachwood Medical CenterComment on above:Result Comment: Electronically Signed By: Dave VILLELA, Bryson Ferrell.br\Date and Time Signed: 08/20/24 16:50 EDTOther Comment: Missing Attachment [id number] Can be viewed in source systemLon 06-82-9628AKrkdpgvn: [id number] Received: 07/19/24 Status: WILLY Acosta Num: [id number] Spec Type: Surgical Subm Dr: Ashok Nam MD Tissues: A Skin-Other than Cyst, tag, debridement or plastic repair (BACK) Procedures: HE/10, Gross/Micro L4 Age/ Patient Sex Location Account Attending Physician Depinet,Sonia 43/F [place] [id number] Ashok Nam MD SPEC NUM: [id number] RECD: 07/19/24 STATUS: WILLY ACOSTA NUM: [id number] RICHARD: 07/18/[address]: Ashok Nam MD ENTERED: 07/19/[address] [facility] [address]: SPEC TYPE: Surgical DEPT: S ENTERED BY: [id number] RECV BY: [id number] ORDERED: HE/10, Gross/Micro L4 ORDERED: HE/10, Gross/Micro L4 Pathological Diagnosis Wide excision of skin lesion from back : Ulcerated infiltrating multifocal basal cell carcinoma skin extending into mid dermis. All surgical margins are free. Clinical Information Basal cell carcinoma back, nonhealing lesion reexcision biopsy Gross Description The specimen is received in formalin with the patient's name and back and consists of a unoriented, douglas-pink, ellipse of skin measuring 4.8 x 2.6 and excised to a depth of 1.1 cm. The skin surface is douglas-pink with a centrally located ulcerated lesion measuring 1.4 x 0.7 cm. The lesion measures 0.8 cm to the closest surgical margin. The resection margin is inked black. The specimen is serially sectioned from tip to tip into 12 sections. Cut surfaces reveal yellow fibrofatty tissue. The lesion measures 0.6 cm to the deep margin. The specimen is sequentially and entirely submitted from tip to tip into cassettes A1-A10. A1 first tip quadrisected A2-A9 mid sections A10 second tip serially sectioned Specimen: [id number] Received: 07/19/24 Status: WILLY Valencia Num: [id number] Spec Type: Surgical Subm Dr: Ashok Nam MD Tissues: A Skin-Other than Cyst, tag, debridement or plastic repair (BACK) Procedures: , Gross/Micro L4 Patient: Sonia Hernandez [id number] (Continued) Specimen: [id number] Received: 07/19/24 (Continued) Signed (signature on file) Mars Bahena MD 07/25/24 1113 Specimen: [id number] Received: 07/19/24 Status: IWLLY Valencia Num: [id number] Spec Type: Surgical Subm Dr: Ashok Nam MD Tissues: A Skin-Other than Cyst, tag, debridement or plastic repair (BACK) Procedures: , Homero/Micro L4 Patient: Ijeoma Hernandezissa [id number] (Continued) Specimen: [id number] Received: 07/19/24 (Continued) CPT Codes 88 309 Specimen: [id number] Received: 07/19/24 Status: WILLY Valencia Num: [id number] Spec Type: Surgical Subm Dr: Ashok Nam MD Tissues: A Skin-Other than Cyst, tag, debridement or plastic repair (BACK) Procedures: , Gross/Micro L4 Patient: DavidSonia [id number] (Continued) Signed (signature on file) Mars Bahena MD 07/25/[address] [place] [address] Physician GroupIGP,APTIMA HPV,AGE GDLNon 16-68-1988IJF GDLN ACOG TESTINGNote.NOMS HealthcareComment on above:TESTS RESULT FLAG UNITS REF RANGE LAB Clinician Provided Cytology Information Source.............Cervix;Endocervix No. of containers..01 ThinPrep Vial Age Justine MAXWELL Venita... FLAG LEGEND: L-Low Normal,H-High Normal,LL-Alert Low,HH-Alert High <-Panic Low,>-Panic High,A-Abnormal,AA-Critical Abnormal Performed at: 01 =[address] [address] Mami Navarro MD, HPV APTIMANegativeNegativeNOMS HealthcareComment on above:This nucleic acid amplification test detects fourteen high- risk HPV types (16,18,31,33,35,39,45,51,52,56,58,59,66,68) without differentiation. Performed at: =[address] [id number] It Software Engineer: Mami Navarro MD, Phone: [phone] Performed at: [address] [id number] It Software Engineer: Mami Navarro MD, Phone: [phone] IGP, APTIMA HPV, RFX 16/18,45Note.NOMS HealthcareComment on above:TESTS RESULT FLAG UNITS REF RANGE LAB DIAGNOSIS: 02 NEGATIVE FOR INTRAEPITHELIAL LESION OR MALIGNANCY. Specimen adequacy: 02 Satisfactory for evaluation. No endocervical component is identified. Performed by: Janice Neil, Scrap Sawyer ([facility]) . 02 Note: Note 02 The Pap smear is a screening test designed to aid in the detection of premalignant and malignant conditions of the uterine cervix. It is not a diagnostic procedure and should not be used as the sole means of detecting cervical cancer. Both false-positive and false-negative reports do occur. Test Methodology: Note 02 This liquid based ThinPrep(R) pap test was screened with the use of an image guided system. HPV Genotype Reflex Note 02 Criteria not met, HPV Genotype not performed. FLAG LEGEND: L-Low Normal,H-High Normal,LL-Alert Low,HH-Alert High <-Panic Low,>-Panic High,A-Abnormal,AA-Critical Abnormal Performed at: [address] [address] Mami Navarro MD, BRUSH-SPATULA CERVIX ENDOCERVIX CLINISYNCNOMS HealthcareAmbulatory Visit Summaryon 58-83-6861Pqvrplwerj Visit SummaryAmbulatory Visit Summary CATIASONIA CAROLINA :1980 Visit Date:05/02/2024 Ambulatory Visit Instructions Your Diagnosis Other skin changes BMI 35.0-35.9,adult Class 1 obesity due to excess calories in adult Nonsmoker Your Care Team Attending Physician - Radha Deutsch Primary Care Physician - Radha Deutsch Procedures Performed Release of trigger finger, [...] you for choosing us for your care. [facility] Medicine Office/Clinic Noteon 39-32-7868Aldzzh Medicine Office/Clinic NoteHahnemann Hospital Medicine Office/Clinic Note HPI Staff Sonia is a 43 year old female presenting [...] is rubbing on it. 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 if she needs a [...] Daily, # 30 tab(s), Refills(s) 0, Pharmacy: [facility]/pharmacy #[id number],166.2, cm, 09/12/23 8:30:00 EST, Height/Length Dosing, 109.8, [...] 08/05/2016 Recorded influenza virus vaccine, inactivated 08/12/2014 RecordedWilson HealthComment on above:Result Comment: Electronically Signed By: Radha Deutsch\.jelena\Date and Time Signed: 05/02/24 10:30 EDTConsultation Noteon 37-00-8440Bckkdclosvuk [id number]#1.00TIFF Wilson HealthOutside Mammographyon 61-86-8812Fwnfwuk [id number]#1.00TIFFWilson HealthMM TOMOSYNTHESIS SCREENING BIon 10-32-7556[address] [address] Mammography Report Signed Patient: SONIA HERNANDEZ MR#: [id number] : 1980 Acct:[id number] Age/Sex: 43 / F ADM Date: 12/22/23 Loc: MAMMO Attending Dr: Kenneth Pinedo D.O. Ordering Physician: Kenneth Pinedo D.O. Results: Date of Service: 12/22/23 Follow Up: Procedure(s): MM tomosynthesis screening BI Accession Number(s): [id number] cc: Kenneth Pinedo D.O.; FRANCISCORADHA L Patient Name: SONIA HERNANDEZ MR#: [id number] : 1980 Exam Date: 12/22/2023 Ordering Doctor: DR Kennteh Pinedo . RADIOLOGY REPORT PROCEDURE: MM TOMOSYNTHESIS SCREENING BI COMPARISON: MG MAMM SCREEN 3D SHALOM CAD, 06/01/2022. MG MAMM SCREEN 3D SHALOM CAD, 04/09/2021. MG MAMM SCREEN SHALOM W CAD, 10/04/2019. INDICATIONS: screening Calculator Name NCI Breast Cancer Risk Assessment Tool 5 Year Breast Cancer Risk 1.20% Lifetime Breast Cancer Risk 14.20% Personal Breast Cancer No Personal Ovarian Cancer No Treatments None Family Cancers Grandmother-paternal with breast cancer at age 70. LOCATION: [facility] BREAST COMPOSITION: Heterogeneously dense,which may obscure small masses. FINDINGS: DIAGNOSTIC CATEGORY 1--NEGATIVE. RIGHT BREAST: No significant suspicious finding. No significant change has occurred. LEFT BREAST: No significant suspicious finding. No significant change has occurred. RECOMMENDATIONS: ROUTINE MAMMOGRAM AND CLINICAL EVALUATION IN 12 MONTHS. PLEASE NOTE: A NORMAL MAMMOGRAM DOES NOT EXCLUDE THE POSSIBILITY OF BREAST CANCER. A CLINICALLY SUSPICIOUS PALPABLE LUMP SHOULD BE BIOPSIED. Dictated by: Eva Mendez M.D. on 12/22/2023 at 15:49 Approved by: Eva Mendez M.D. on 12/22/2023 at 15:51 Dictated By: Eva Mendez M.D. Signed By: 12/22/23 1552 DD/ 1551 TD/TT: Release Of Information Specialist:TBHRadiology, Radiologist, - 12/22/2023 [place] [address] Mammography Report Signed Patient: SONIA HERNANDEZ MR#: [id number] : 1980 Acct:[id number] Age/Sex: 43 / F ADM Date: 12/22/23 Loc: MAMMO Attending Dr: Kenneth Pinedo D.O. Ordering Physician: Kenneth Pinedo D.O. Results: Date of Service: 12/22/23 Follow Up: Procedure(s): MM tomosynthesis screening BI Accession Number(s): [id number] cc: Kenneth Pinedo D.O.; RADHA SINGH Patient Name: SONIA HERNANDEZ MR#: [id number] : 1980 Exam Date: 12/22/2023 Ordering Doctor: DR Kenneth Pinedo . RADIOLOGY REPORT PROCEDURE: MM TOMOSYNTHESIS SCREENING BI COMPARISON: MG MAMM SCREEN 3D SHALOM CAD, 06/01/2022. MG MAMM SCREEN 3D SHALOM CAD, 04/09/2021. MG MAMM SCREEN SHALOM W CAD, 10/04/2019. INDICATIONS: screening Calculator Name NCI Breast Cancer Risk Assessment Tool 5 Year Breast Cancer Risk 1.20% Lifetime Breast Cancer Risk 14.20% Personal Breast Cancer No Personal Ovarian Cancer No Treatments None Family Cancers Grandmother-paternal with breast cancer at age 70. LOCATION: [facility] BREAST COMPOSITION: Heterogeneously dense,which may obscure small masses. FINDINGS: DIAGNOSTIC CATEGORY 1--NEGATIVE. RIGHT BREAST: No significant suspicious finding. No significant change has occurred. LEFT BREAST: No significant suspicious finding. No significant change has occurred. RECOMMENDATIONS: ROUTINE MAMMOGRAM AND CLINICAL EVALUATION IN 12 MONTHS. PLEASE NOTE: A NORMAL MAMMOGRAM DOES NOT EXCLUDE THE POSSIBILITY OF BREAST CANCER. A CLINICALLY SUSPICIOUS PALPABLE LUMP SHOULD BE BIOPSIED. Dictated by: Eva Mendez M.D. on 12/22/2023 at 15:49 Approved by: Eva Mendez M.D. on 12/22/2023 at 15:51 Dictated By: Eva Mendez M.D. Signed By: 12/22/23 1552 DD/ 155 TD/TT: Release Of Information Specialist: RICKI HealthcareRadiology Study observation (narrative)[facility] TOMOSYNTHESIS SCREENING BIOrdered By: Radiologist Radiology on 70-00-8870X[facility] Healthcare Work Phone: consultation Noteon 90-60-2368Lqamcueimheq Note [id number]#1.00TIFVeronicaUniversity Hospitals Beachwood Medical CenterConsultation Noteon 41-07-2581Irsophfmegit Note [id number]#1.00[facility] HospitalRAD - MISCon 23-01-2414IAL - MISC [id number]#1.00[facility] CenterED Note-Physicianon 11-86-1660MB Note-Physician [id number]#1.00[facility] CenterED Note-[id number]#1.00[facility] Beachwood Medical CenterRAD - [facility] 14-93-1470[facility]ERC [id number]#1.00[facility] HospitalAmbulatory Visit Summaryon 44-69-8394Qhrcehwbuh Visit Summary FRANSONIA Porter Sanna :1980 Visit Date:09/12/2023 Ambulatory Visit Instructions Your Diagnosis Heel pain BMI 39.0-39.9,adult Non-smoker Your Care Team Attending Physician - Radha Deutsch Primary Care Physician - Radha Deutsch Procedures Performed Surgery. Discharge Vitals Heart [...] you for choosing us for your care. [facility] Medicine Office/Clinic Noteon 52-23-9379Ffjehh Medicine Office/Clinic NoteHPI Staff Sonia is a 42 year old female presenting to [facility] care Establish Care: History: Any previous diagnosis: [...] not improved since. she purchased some braces towear at night and it helps a little with the morning pain. but by the end of the day. the pain is pretty miserable. will refer to Dr. Garcia in [place]. will order medrol dose pack and antiinflammatory. all questions answered. pt states she has labs done at work every year and her cholesterol and blood sugar were normal. RTC as needed Ordered: meloxicam, 7.5 mg = 1 tab(s), Oral, Daily, # 30 tab(s), Refills(s) 0, [id number], cm, 09/12/23 8:30:00 EST, Height/Length Dosing, 109.8, kg, 09/12/23 8:30:00 EST, Weight Dosing methylPREDNISolone, = 1 packet(s), Oral, As Directed, as directed on package labeling, X 6 day(s), # 21 tab(s), Refills(s) 0, [id number], 166.2, cm, 09/12/23 8:30:00 EST, Height/Length Dosing, 109.8, kg, 09/12/23 8:30:00 EST, Weight Dosing 2. BMI 39.0-39.9,adult (Z68.39: Body mass index [BMI] 39.0-39.9, adult) bmi education complete Ordered: meloxicam, 7.5 mg = 1 tab(s), Oral, Daily, # 30 tab(s), Refills(s) 0, [facility]166.[facility], cm, 09/12/23 8:30:00 EST, Height/Length Dosing, 109.8, kg, 09/12/23 8:30:00 EST, Weight Dosing methylPREDNISolone, = 1 packet(s), Oral, As Directed, as directed on package labeling, X 6 day(s), # 21 tab(s), Refills(s) 0, [id number], 166.2, cm, 09/12/23 8:30:00 EST, Height/Length Dosing, 109.8, kg, 09/12/23 8:30:00 EST, Weight Dosing 3. Non-smoker (Z78.9: Other specified health status) continue not smoking Ordered: meloxicam, 7.5 mg = 1 tab(s), Oral, Daily, # 30 tab(s), Refills(s) 0, Pharmacy: [facility]/pharmacy #6177,166.2, cm, 09/12/23 8:30:00 EST, Height/Length Dosing, 109.8, kg, 09/12/23 8:30:00 EST, Weight Dosing methylPREDNISolone, = 1 packet(s), Oral, As Directed, as directed on package labeling, X 6 day(s), # 21 tab(s), Refills(s) 0, Pharmacy: [facility]/pharmacy #[id number], 166.2, cm, 09/12/23 8:30:00 EST, [...] 08/05/2016 Recorded influenza virus vaccine, inactivated 08/12/2014 RecordedWilson HealthComment on above:Result Comment: Electronically Signed By: Radha Deutsch\.br\Date and Time Signed: 09/12/23 09:23 ESTPAP ACOG PANEL 2: 30 to 65on 06-24-2022..NormalThe [facility] Hospital CompanyComment on above:Result Comment: Performed at: WBPerformed By: #### [id number] #### [facility] [address] [address] [address] Radha Lee Gdln ACOG Wszsiok62-95TiqpqpOmnMetroHealth Cleveland Heights Medical CenterComment on above:Performed By: #### [id number] #### [facility] [address] [address] [address] Radha AngelDIAGNOSIS:CommentAbWadsworth-Rittman HospitalComment on above: Result Comment: EPITHELIAL CELL ABNORMALITY. ATYPICAL SQUAMOUS CELLS OF UNDETERMINED SIGNIFICANCE (ASC-US). FUNGAL ORGANISMS MORPHOLOGICALLY CONSISTENT WITH INDERJIT SPECIES ARE PRESENT. Performed at: WBPerformed By: #### [id number] #### [facility] [address] [place] [address] Dr. Garcia ChangElectronically signed by:[facility] Comment on above:Result Comment: Soledad Grande MD, Pathologist Performed at: WBPerformed By: #### [id number] #### [facility] [address] [place] [address] Dr. Radha AngelHPV AptimaNegativeNormalNegativeCleveland Clinic Medina HospitalComment on above:Result Comment: This nucleic acid amplification test detects fourteen high-risk HPV types (16,18,31,33,35,39,45,51,52,56,58,59,66,68) without differentiation. Performed at: =GPerformed By: #### [id number] #### [facility] [address] [place] [address] Dr. Radha AngelMethodology:CommentOhioHealth Hardin Memorial HospitalComment on above: Result Comment: This liquid based ThinPrep(R) pap test was screened with the use of an image guided system. Performed at: WBPerformed By: #### [id number] #### [facility] [address] [place] [address] Dr. Radha AngelNote:CommentOhioHealth Hardin Memorial HospitalComment on above:Result Comment: The Pap smear is a screening test designed to aid in the detection of premalignant and malignant conditions of the uterine cervix. It is not a diagnostic procedure and should not be used as the sole means of detecting cervical cancer. Both false-positive and false-negative reports do occur. . Performed at: WBPerformed By: #### [id number] #### [facility] [address] [place] [address] Dr. Radha AngelPathologist Provided DPW25CskeaajBpbasvXyvOhioHealth Hardin Memorial Hospital Comment on above:Result Comment: R87.610, R87.5 Performed at: WBPerformed By: #### [id number] #### [facility] [address] [address] [address] Radha AngelPerformed by:CommentNoAvita Health System Ontario Hospital on above: Result Comment: Juanito Clemens, Scrap Sawyer (ASCP) Performed at: WBPerformed By: #### [id number] #### [facility] [address] [address] [address] Radha AngelRecommendation:CommentAbOhioHealth Grove City Methodist Hospital on above:Result Comment: Suggest follow up as clinically appropriate. Performed at: WBPerformed By: #### [id number] #### [facility] [address] [address] [address] Radha AngelSpecimen adequacy:CommentCity Hospital on above:Result Comment: Satisfactory for evaluation. Endocervical and/or squamous metaplastic cells (endocervical component) are present. Performed at: Performed By: #### [id number] #### [facility] [address] [address] [address] Radha AngelMG MAMM SCREEN 3D SHAOLM CADon 21-35-9895GN MAMM SCREEN 3D SHALOM CAD Patient: SONIA HERNANDEZ Exam Date: 06/01/2022 : 1980 Gender:F Ordering : DR KENNETH PINEDO . Admission #: [id number] Family : Order #: [id number] CLICK HERE TO VIEW EXAM RADIOLOGY REPORT [...] breast cancer at age 68. LOCATION: [facility] BREAST COMPOSITION: Extremely dense, which lowers the [...] PALPABLE LUMP SHOULD BE BIOPSIED. Dictated by: Eva Mendez M.D. on 06/01/2022 at 15:15 Approved by: Eva Mendez M.D. on 06/01/2022 at 15:17[facility] HospitalIntraoperative Noteon 00-14-9350Zreefthzlizmvh Note [id number]#1.00[facility] History and Physicalon 05-08-5777Gzqowtk and Physical [id number]#1.00[facility] Provider Orderson 09-55-3715Wejijkeh Orders [id number]#1.00[facility] HospitalCoding Summaryon 70-50-9737Yguuxt SummaryCODING DATE: 01/10/2018 [facility] STATUS: Home PAYOR: Commercial Insurance APC DESCRIPTION 5431 Level 1 Nerve Procedures ADMIT DX: REASON FOR VISIT DX: G56.02 Carpal tunnel syndrome, left upper limb M65.332 Trigger finger, left middle finger FINAL DX: PRINCIPAL: G56.02 Carpal tunnel syndrome, left upper limb SECONDARY: M65.332 Trigger finger, left middle finger PYMT PROC APC STAT DESCRIPTION DOCTOR NAME DATE 53757 5431 J1 Neuroplasty and/or Natanael Taylor And 01/09/2018 tra nsposition; median nerve at carpal tunnel LT Left side (used to identify procedures performed on the left side of the body) 61568 Tendon sheath incision Natanael Taylor And 01/09/2018 (eg, for trigger finger) F2 Left hand, third digit NOTE: The code number assigned matches the documented diagnosis and / or procedure in the patient's chart. However, the narrative phrase printed from the coding software may appear abbreviated, or result in slightly different terminology. Coded By: Hannah Rodriguez Date Saved: 01/10/2018 01:39 pmNormal [facility] General Health CenterConsent Formson 53-01-7839Axxdout Forms [id number]#1.00[facility] Anesthesia Noteon 93-95-3948Hgrwtnohda NotePatient: SONIA HERNANDEZ : 37 years Sex: FEMALE : [birth year]Associated Diagnoses: NoneAuthor: Bj Cuellar MDPostoperative InformationPost Operative Note: Post Anesthesia Care Unit.Health StatusAllergies:Allergic Reactions (All)Severity Not DocumentedAmoxicillin-Hives.Physical ExaminationVS/MeasurementsVital Signs01/09/18 10:45 EDT Peripheral Pulse Rate 59 bpmLOW Respiratory Rate 16 br/min Systolic Blood Pressure 160 mmHg HI Diastolic Blood Pressure 91 mmHgHI Mean Arterial Pressure, Cuff 114 mmHg BP Site Right lower leg SpO2 97 % Oxygen Therapy Room airGeneral: No acute distress.Respiratory: Respirations are non-labored.Review / ManagementCondition: Stable.AssessmentAnesthetic outcomeNo anesthetic complications noted.Adequate pain relief.No Complaintof nausea and vomiting.PlanTransfer/ Discharge: Patient can be discharged from PACU when criteria met.Condition stable.[Electronically Signed on: 01/09/2018 11:14 EDT] Bj Cuellar MD[Verified on: 01/09/2018 11:14 EDT] Bj Cuellar MDOur Lady of Mercy Hospital - AndersonAnesthesia NotePatient: SONIA HERNANDEZ : 37 years Sex: FEMALE : [birth year]Associated Diagnoses: NoneAuthor: Bj Cuellar MDPreoperative InformationAnesthesia history: Patient history: No difficult intubation, No malignant hyperthermia. Family history: No malignant hyperthermia.Review of SystemsRespiratory: No shortness of breath, No apnea.Cardiovascular: No known AL, No chest pain.Gastrointestinal: No heartburn.Health StatusAllergies:Allergic Reactions (All)Severity Not Doc umentedAmoxicillin- Hives.Current medications:No qualifying data availableProblem list (past medical history):All ProblemsH/O fracture of wrist / SNOMED CT 2256362521 / ConfirmedHistoriesFamily History:No family history items have been selected or recorded.Procedure history:No active procedure history items have been selected or recorded.Social History Alcohol Assessment Use: Current. Beer, Wine,Liquor, 1-2 times per year Tobacco Assessment Former smoker, quit more than 30 days ago Tobacco Use:. Substance Abuse Assessment Substance use: Never..Physical ExaminationVS/MeasurementsVital Signs (last 24 hrs) Last ChartedHeart Rate Peripheral 92 bpm (JAN 09 08:)Resp Rate 16 br/min (JAN 09:)SBP H 145 mmHg (JAN 09:15)DBP H 94 mmHg (JAN 09:)SpO2 98 % (JAN 09:)General: Alert and oriented, No acute distress.Airway: Mallampati [...] on: 01/09/2018 08:25 EDT] Bj Cuellar MD NormalMagruder HospitalInpatient Clinical Summaryon 76-01-8074Wcqemsgrh Clinical SummaryThe [facility] SURGERYClinical Discharge SummaryPERSON INFORMATIONName SONIA HERNANDEZ Age 37 Years [birth year]Sex FEMALE Language Syrian PCP Arsh CRABTREE Status Med Service Ambulatory SurgeryMRN [id number] Acct# Arrival 01/09/18 07:23:04Visit Reason SURGERY - RELEASE LEFT CARPAL TUNNEL AND TRIGGER FINGER LEFT MIDDLE FINGER Acuity LOS 039 21:44Address:[address] [id number]:PROVIDER INFORMATIONVITALS INFORMATIONVital Sign Triage LatestTemp OralTemp TemporalTemp IntravascularTemp AxillaryTemp Usshvq37 Sat 98 % 99 %Respiratory Rate 16 br/min 16 br/minPeripheral Pulse Rate 73 bpm 75 bpmApical Heart RateBlood Pressure 130 mmHg / 92 mmHg 133 mmHg / 87 mmHgComment:MEDICAL INFORMATIONAllergy Info:amoxicillinPrescriptions Given:Medication List:Comment:Lab and Radiology ResultsLaboratory or Other Results This Visit (last charted value for your 01/09/2018 visit) Chemistry 01/09/2018 8:01 AM U Preg: NegativeDIET & ACTIVITYPatient Activity Level:Patient Diet:RegularPatient Activity Restrictions:DISCHARGE INFORMATIONDischarge Disposition:Discharge Location:DEPART REASON INCOMPLETE INFORMATIONPATIENT EDUCATION INFORMATIONInstr uctions:[place]- Post Op Carpal Tunnel ([facility])Follow up:With: Address: When:CHANELL PRADHAN [facility] [address] [place], [place] [address] Business (1) 01/18/2018 9:00 AMWith: Address: When:YARELI CRABTREE [address] [place], [place] [id number] Business (1)DIAGNOSISCarpal tunnel syndrome on left; Trigger finger, left middle fingerComment:PHYS DOC NOTESOur Lady of Mercy Hospital - AndersonInpatient Patient Summaryon 59-20-9539Dcuujqzbb Patient Summary[address] [id number] patient Discharge InstructionsName: SONIA HERNANDEZ MDOB: [birth year] Address: [address] [place], [place] [address]Primary Care Provider:Name: YARELI CRABTREEPhone: After you are discharged if you find you have any questions, please, call [phone] ext [phone] to speak to a nurse.Discharge Diagnosis: Carpal [...] alcoholic beverages and drugs for allergies, nerves, orsleep? Do not make important personal or business decisions or sign any legal documentsSouthwest General Health Center would like to thank you for allowing us to assist you with your healthcare needs. The following includes patient education materials and information regarding your injury/illness.SONIA HERNANDEZ has been given the following list of follow-up instructions, prescriptions, and patient education materials:Follow-up InstructionsWith: Address: When:CHANELL THOMAS [address] [place] [address], [address] [place], [place] [address] Business (1) 01/18/2018 9:00 AMWith: Address: When:YARELI CRABTREE [address] [place] [address] Business (1)MedicationsDuring the course of your [...] while awake-DO NOT lift heavy objects or single stayer operator forcefully with your hand-Change your dressing in 1 day and appl y an nadege bandage as directed with the thumb tucked towards the palm of your hand. This keeps the tension off your incision-You may shower in 1 day but do not submerge your hand under water. Put a 1t0rielt and the nadege bandage back on after you shower-If you have any problems or concerns, please call the office at [phone]-Follow up as scheduledViruses or BacteriaWhat?s got you sick?Antibiotics only treat bacterial infections. Viral illnesses cannot be treated with antibiotics. When an antibiotic is not prescribed, ask your healthcare professional for tips on how to relieve symptoms and feel better. Usual CauseIllness Viruses Bacteria Antibiotic NeededCold/Runny Nose NOBronchitis/Chest Cold (in otherwise healthy children and adults) NOWhooping Cough YesFlu NOStrep Throat YesSore Throat(except strep) NOFluid in the middle ear (otitis media with effusion) NOUrinary Tract Infection YesAntibiotics Aren?t Always the Answerwww.cdc.gov/getsmart GETSMARTKnow When Antibiotics [place] Department of Health and Human ServicesCenters for Disease Control and Prevention July 2014[facility] Intraoperative Recordon 56-34-8440JLDD Intraoperative RecordMAGR Intra-Op Record Summary Primary Physician: Natanael Taylor DO Finalized Date/Time: 01/09/18 11:09:48 Pt. Name: SONIA HERNANDEZ/Sex: 1980 FEMALE Med Rec #: [id number] Physician: Natanael Taylor DO Financial #: [id number] Pt. Type: D Room/Bed: / Admit/Disch: 01/09/18 [...] Role Performed Surgeon - Primary Anesthesiologist of Data Center Technician Record Time In 01/09/18 09:31:00 01/09/18 09:31:00 01/09/18 09:31:00 Time Out 01/09/18 10:17:00 01/09/18 10:17:00 01/09/18 10:17:00 Procedure Carpal Tunnel Carpal Tunnel CarpalTunnel Release(Left), Trigger Release(Left), Trigger Release(Left), Trigger Finger Release(Left) Finger Release(Left) Finger Release(Left) Last Modified By: Alina Kilpatrick RN, Stephanie RN Sauer, Stephanie RN 01/09/18 10:18:25 01/09/18 10:18:25 01/09/18 10:18:45 Entry 4 Entry 5 Case Attendee BOARD CSFA/MALLET AND DIE CUTTER, Ang Zavala CST Role Performed Rn Cardiac Scrub Personnel Time In 01/09/18 09:31:00 01/09/18 09:31:00 Time Out 01/09/18 10:17:00 01/09/18 10:17:00 Procedure Carpal Tunnel Carpal Tunnel Release(Left), Trigger Release(Left) Finger Release(Left) Last Modified By: Alina Nvaas RN, Stephanie RN 01/09/18 10:18:45 01/09/18 10:18:58 Surgical Procedures MAGR Pre-Care Text: A.20 Verifies operative procedure, surgical site, and laterality Im.150 Develops individualized plan of care Entry 1 Entry 2 Procedure Carpal Tunnel Release Trigger Finger Release PrimaryProcedure Yes No Primary Surgeon Natanael Taylor James Andrew DO Andrew DO Modifiers Left Left Surgeon Comment RELEASE LEFT CARPAL RELEASE LEFT CARPAL TUNNEL AND TRIGGER TUNNEL AND TRIGGER FINGER LEFT MIDDLE FINGER LEFT MIDDLE FINGER FINGER Start 01/09/18 09:49:00 01/09/18 09:49:00 Stop 01/09/18 10:10:00 01/09/18 10:10:00 Anesthesia Type MAC MAC Surgical Service Orthopedics Orthopedi cs Wound Class Clean Clean Last Modified By: Alina Kilpatrick RN, Stephanie RN 01/09/18 10:18:30 01/09/18 10:18:30 Post-Care Text: O.730 The patient's care is consistent with the individualizedperioperative plan of care General Case Data MAGR Pre-Care Text: A.350.1 Classifies surgical wound Entry 1 Case Information OR MAGR OR 02 Case Level Level 3 Wound Class Clean Specialty Orthopedics ASA Class 1 Diagnosis Preop Diagnosis LEFT CARPAL TUNNEL Postop Same As Preop Yes SYNDROME AND TRIGGERFINGER LEFT MIDDLE FINGER Postop Diagnosis LEFT CARPAL [...] Yes Pillow, Safety Strap Last Modified By: Jaylene Kilpatrick 01/09/18 09:55:33 Post-Care Text: E.290 Evaluates musculoskeletal status O.80 Patient is free from signs and symptoms of injury related to positioning Skin Prep MAGR Pre-Care Text: A.30 Verifies al lergies Im.270 Performs skin preparation Im.270.1 Implements protective [...] Evaluates results of the surgical count O.20 Patientis free from unintended retained foreign objects Tourniquet MAGR Pre-Care Text: A.240 Assesses baseline skin condition Im.120 Implements protective measures to prevent skin or tissue injury due to mec hanical sources Entry 1 Tourniquet Type TOURNIQUET Cuff Size 45.7 cm Serial Number [id number] Setting 250mmHg Placement Arm upper Padding (Im.120) Yes Placement Details Left Tourniquet Times Inflated 01/09/18 09:46:00 Deflated 01/09/18 10:10:00 Total Time 22 Applied By Alina Kilpatrick RN Removed By BOARD CSFA/MALLET AND DIE CUTTER, XENA Outcome Met (O.60) Yes Last Modified [...] Reason for Unfinalizing 01/09/18 11:08 SSAUER Modify [facility] CenterMAGR Postoperative Recordon [id number] Postoperative RecordMAGR Phase II Record Summary Primary Physician: Natanael Taylor DO Finalized Date/Time: 01/09/18 11:54:57 Pt. Name: SONIA HERNANDEZ/Sex: 1980 FEMALE Med Rec #: [id number] Physician: Natanael Taylor DO Financial #: [id number] Pt. Type: D Room/Bed: / Admit/Disch: 01/09/18 07:23:04 - Institution: Phase II Case Times MAGR Pre-Care Text: Patient is free from s/s of injury. Patient remains free from compromised physical state related to surgery or anesthesia. Patient comfort maintained. Patient/family verbalize understanding of discharge instruc tions. Entry 1 In PACU II 01/09/18 10:15:00 [...] control. Patient/family express understanding of discharge instructions. FinalizedBy: Belia Emmanuel RN Document Signatures Signed By: Belia Emmanuel RN 01/09/18 11:54[facility] Preoperative Recordon [id number] Preoperative RecordMAGR Pre-Op Record Summary Primary Physician: Natanael Taylor DO Finalized Date/Time: 01/09/18 10:24:11 Pt. Name: SONIA HERNANDEZ/Sex: 1980 FEMALE Med Rec #: [id number] Physician: Natanael Taylor DO Financial #: [id number] Pt. Type: D Room/Bed:/ Admit/Disch: 01/09/18 07:23:04 - Institution: Pre-Op Case [...] Signatures Signed By: Belia Emmanuel RN 01/09/18 10:24[facility] AndersonOperative Report - Surgeon/Physicianon 45-98-0173Ylfetmgdi Report - Surgeon/PhysicianProcedure: Decompression of median nerve left wrist with release of carpal canalDecompression and release of trigger finger left middlePre Op Diagnosis: Carpal tunnel syndrome leftTrigger finger leftmiddlePost Op Dianosis: Carpal tunnel syndrome leftTrigger finger [...] a nylon suture.Adaptic sterile dressings and an Nadege bandage were applied to the wounds with the thumb in appositionComplications: None[Electronically Signed on: 01/09/2018 11:20 EDT] Natanael Taylor DO[Verified on: 01/09/2018 11:20 EDT] Natanael Taylor DONormal [facility] Health CenterPregnancy Test Urine 1on 01-09-2018U PregNegativeNoVan Wert County HospitalComment on above:Performed By: #### [id number] ####[facility] (DEFAULT)[address] [place] [id number] Preg Internal ControlSCCI Hospital LimaComment on above:Performed By: #### [id number] ####[facility] (DEFAULT)[address] [place] [address]Hbsdaliq Note - Nurseon 42-13-7093Inshvcxk Note - NurseSpoke with pt and informed her to be here at 0730 and NPO after MN, she verbalizes understanding.[Electronically Signed on: 01/06/2018 09:54 EST] Belia Emmanuel RN[Verified on: 01/06/2018 09:54 EST] Belia Emmanuel RN [facility] Vital Signs Date TimeVital SignValuePerforming BpmwotgrwYgzeshfo07-22-6786 15:40-0500Body mass index (BMI) [Ratio]38.29 kg/m2Lucia STROUD Work Phone: [facility] CenterOajibvmefp03-68-4061 15:40-0500Body fartye177.37 kgLucia STROUD Work Phone: NOPutnam County Memorial HospitalDceuppqhfc86-10-7443 15:40-0500Diastolic blood fdplipvx15 mm[Hg]Lucia STROUD Work Phone: noPutnam County Memorial HospitalQnuqvibqax97-46-3768 15:40-0500Systolic blood fhqbyvou833 mm[Hg]Lucia STROUD Work Phone: [facility] Encounters Encounter DateEncounter TypeCare ProviderFacilityStart: 08-20-2024 End: 15-55-4610xvpxsgbqvtQzshgu E. RossFacility:MOHAN FELIPE BellevueStart: 07-18-2024 End: 22-63-6419xsfkdfgjszBZ Joceline Del Toroyoung Work Phone: [facility] Work Phone: Start: 07-18-2024 End: 24-04-6426Giyhmhll ReferredNP Joceline Val Work Phone: [facility] [place] Work Phone: Start: 06-18-2024 End: 73-13-9512Sxybyvgyu Result EncounterLucia STROUD Work Phone: [facility] External Department UnsolicitedStart: 06-18-2024 End: 65-42-4691Srqeswgvd Result EncounterLucia STROUD Work Phone: noms External Department UnsolicitedStart: 06-18-2024 End: 64-97-2103qzbjzztjvbCFF RAMEYNot AvailableStart: 05-08-2024 End: 19-92-0284ouvshvwixjRJUJEGQ A FELTERNot AvailableStart: 05-02-2024 End: 20-45-0953lxqgwhcsloXFC Radha Barrett SchwabFacility:FT FM BellevueStart: 04-11-2024 End: 22-99-5192zcboqertuzRKQTB B APLINGNot AvailableStart: 03-06-2024 End: 85-87-5533qovxycrjgbUWOCU A HUDDLESTONNot AvailableStart: 02-01-2024 End: 95-33-9535dfvetyrzqcQFJ RAMEYNot AvailableStart: 01-04-2024 End: 64-12-0197mgvlwgoxgwGIF RAMEYNot AvailableStart: 12-22-2023 End: 34-11-3991Jqulzdane Result EncounterCorey Khris DO Work Phone: n[facility] External Department UnsolicitedStart: 12-22-2023 End: 58-99-9676Vhqflthci Result EncounterCorey Khris DO Work Phone: noms External Department UnsolicitedStart: 12-07-2023 End: 84-81-7208dgwhkhtimvJQX RAMEYNot AvailableStart: 12-07-2023 End: 63-72-1336Ygqdmm outpatient visit 15 minutesLucia STROUD Work Phone: [facility] BCP OBComment on above:Encounter for weight managementStart: 11-09-2023 End: 29-91-8038gwvsaeduriLKE RAMEYNot AvailableStart: 10-12-2023 End: 99-80-1281gsffvmmpklHEW RAMEYNot AvailableStart: 09-14-2023 End: 14-84-0074swfwqyifrjWCT RAMEYNot AvailableStart: 09-12-2023 End: 23-67-9028nhlxsyacmkNHM Radha Barrett SchwabFacility:FT FM BellevueStart: 51-68-6738veosmhzzdgPptkhv RossFacility:FT FM BellevueStart: 06-17-2022 End: 81-38-2466gceqnedtejSL KENNETH FAZIOFacility:L7Upuxu: 06-01-2022 End: 10-45-7682ebcpxeakzkLX KENNETH FAZIOFacility:L8Mzyav: 01-09-2018 End: 34-97-9205DruvaskeqaUlhdb Andrew HuddlestonFacility:[facility] Hamiltontart: 12-20-2017 End: 59-05-5755UpmpjnsskoObzxgMosaic Life Care at St. JosephFacility:[facility] Procedures DateProcedureProcedure DetailPerforming ClinicianStart: 62-06-1851KJL,APTIMA HPV,AGE GDLNLucia STROUD Work Phone: Start: 95-69-3690MR TOMOSYNTHESIS SCREENING BICorey Khris DO Work Phone: Start: 98-95-6149XvyuoofpsbgAjk Ramey PA Work Phone: Plan of Treatment DateCare ActivityDetailAuthorStart: 93-57-2058Rbekcfjrn for malignant neoplasm of breastMammogramNOMS HealthcareStart: 00-19-3043Eyyxewaqk vaccinationInfluenza Vaccine (#1)[facility] HealthcareStart: 01-04-2024 End: 43-56-5428Pkhxgwe encounter /06/2024 3:40 PM EST Office Visit [facility] [address] [place] [place] [id number] Lucia Sellers PA [address] [place] [address] [facility] BCP OBStart: 92-18-8905Xvxybsskx for malignant neoplasm of cervixNOMS HealthcareStart: 99-15-8003Wcuejpizj for malignant neoplasm of cervixPap SmearNOMS HealthcareStart: 93-26-9736Jumnhpwtm for malignant neoplasm of colonN[facility]S Healthcare Immunizations Immunization DateImmunizationNotesCare MlvjmxyvAyjixbpt61-56-9777bpecvpehj, injectable, quadrivalent, preservative freeAmy Armen PA Work Phone: [facility] CenterLcoaonarpd89-70-6317fkkugocqk virus vaccine, unspecified formulationAmy [place] PA Work Phone: [phone] [place], [place] [address]Uymyqhbijy67-77-9042npcpzlc toxoid, reduced diphtheria toxoid, and acellular pertussis vaccine, adsorbedAmy [place] PA Work Phone: [phone] [place], [place] [address]Zefavprjhu62-22-8189pilctvpnw, injectable, quadrivalent, preservative freeAmy [place] PA Work Phone: [phone] CenterLepjeyfyfu56-38-0050ltfbtzafv, injectable, quadrivalent, preservative freeAmy Armen PA Work Phone: [facility] CenterUkcukcikfb71-65-7573gabrewvmy, seasonal, injectable, preservative freeAmy Armen PA Work Phone: [phone] [place] [address] Payers DatePayer CategoryPayerPolicy [id number] Health [id number] Health InsuranceUC HEALTHCAL MUTUAL Member Subscriber Plan / Payer (Effective 2023- Present) Name: Chani Hernandez Relation to Subscriber: Self Name: Sonia Hernandez Payer ID: Not on file Type: Not on file Address: [address] [place] [id number] [facility] [id number] 2023-Present [address] [place] [id number]7-18-3567 [id number] 2.16.840.1.290103.3.57[id number] 2.16.840.1.062953.3.57[id number] 2.16840.1.381840.3.57[id number] 2.16840.1.625221.3.57[id number] 2.840.1.774575.3.57[id number] 2.840.1.013367.3.57[id number] 2..1.939915.3.57[id number] 2.840.1.647956.3.57[id number] 2..1.855998.3.57[id number] 2.16840.1.450148.3.57[id number] 2.840.1.612774.3.57[id number] 2.840.1.603696.3.57[id number] 2.840.1.869466.3.57[id number] 2.16840.1.658710.3.57[id number] 2.16840.1.435688.3.579.2.72275-98-1920Cc[id number] 2.16.840.1.698452.3.579.2.531 Social History DateTypeDetailFacilityStart: 09-53-3016Xmofhli smoking status NHISNever smoked tobaccoNOMS HealthcareStart: 95-28-2948Bvcdepv use and exposureSmokeless tobacco non-userNOMS HealthcareStart: 12-07-2023 End: 99-22-6754Qxwxepk intakeCurrent drinker of alcohol (finding)[facility] Start: 09-13-2023 End: 63-22-3327Nrnynhu of Social functionNOMS HealthcareStart: 09-13-2023 End: 97-07-5699Pxmymwg Use Disorder Identification Test - Consumption [AUDIT-C] [facility] HealthcareHow often to you have a drink containing alcohol?Monthly or less [facility] HealthcareStart: 07-94-9294Ansnzra Number of DrinksNot on [facility] HealthcareStart: 19-94-3688Krfbuzl CommentOccasional alcohol useNOMS Healthcare Start: 14-55-3736Fzd Assigned At [facility] HospitalNot on [facility] HealthcareStart: 97-69-8275Itv Assigned At [facility] History of Present illness Narrative 12-07-2023 Note Date & YzrcPmkjWpoqegps62-18-9308 History of Present illness Narrative* LUANNE Pedraza - 12/07/2023 3:20 PM EST Reason for Appointment: Patient ID: Sonia Hernandez is a 43 y.o. female [facility]Adipex [facility] Patient presents today for a weight management consultation. Patient has been prescribed Adipex andkarrie is here for her 4th prescription. Today's [...] Patient verbalized understanding. Patient has lost more than5% of her initial body weight Follow Up: Pt will follow up in one month. We will discuss other options including ozempic at that visit Documented by: LUANNE Pedraza on behalf of LUANNE Pedraza documented in this encounterNOMS Healthcare Evaluation note Note Date & TypeNoteFacilityEvaluation note* Diagnosis Encounter for weight management documented in this encounter [facility] Evaluation note Note Date & TypeNoteFacilityEvaluation noteNo assessment information available [facility] Work Phone: Summary Purpose Family History No Family History Records FoundNo Family History Records FoundNo Family History Records FoundNo Family History Records FoundNo Family History Records Found Advance Directives Advance Directive Response Recorded Date/ Time Advance Directives No July 4:05pm Chief Complaint and Reason for Visit Chief Complaint basal cell carcinoma Additional Source Comments INFORMATION SOURCE (unrecogn ized section and content) DATE CREATED AUTHOR 04/19/2018 [facility] DATE CREATED AUTHOR AUTHOR'S ORGANIZ ATION 06/26/2022 [facility] DATE CREATED AUTHOR AUTHOR'S ORGANIZ ATION 06/19/2024 [facility] EPIC DATE CREATED AUTHOR AUTHOR'S ORGANIZ ATION 07/27/2024 [facility] DATE CREATED AUTHOR AUTHOR'S ORGANIZ ATION 08/22/2024 [facility] Reason for Visit (unrecogniz ed section and content) ReasonCommentsEncouter for weight managementAdipex #4 Care Teams (unrecognized sec tion and content) Team Status: Active Member Role Status Dates Joceline Neal NP Primary Care Provider Active Team Status: Inactive Member Role Status Dates Ashok Nma MD Attending Provider Active Start: July 18, 2024 End: July 18, 2024Natdavid Neal NPPrimary Care ProviderActiveStart: July 18, 2024 End: July 18, 2024Team MemberRelationshipSpecialtyStart DateEnd Date Bryson Acosta MD [address] [place] [address] [facility] - [facility] Lucia Sellers PA [address] [place] [address] [place] [address] PCP - [facility]10/31/1411Team MemberRelationshipSpecialty Start DateEnd Date Bryson Acosta MD [address] [place] [address] PCP - GeneralFamily Medicine03/06/24 Lucia Sellers PA [address] [place] [address] [place] [address] PCP - [facility]10/31/1409 Goals (unrecognized section and content) Goals may be documented in a n alternate section FOR RECORDS PERTAINING TO PATIENTS WHO ARE [...] BE BASED ON THE PRIMARY CLINICAL RECORDS. [email or web address] provides no warranty or guarantee of the accuracy or completeness of information in this document.
--- OUTSIDE RECORDS SUMMARY | 2025-10-03 07:38 | XMS_ITS | Patient Health Record ---
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 Name Role Phone Brsyon Acosta MD Primary Care Provider Unavailabl e Allergies Allergen (clinical drug ingredient) Drug/Non Drug Allergy documented on EMR Reaction Allergy Type Onset Date Status amoxicillin Amoxicillin Unknown Drug Allergy Active Reason For Referral No Information Medications Medication SIG (Take, Route, Frequency, Duration) Notes Start Date End Date Status Meloxicam 15 MG 1 tablet Orally Once a day; Dura tion: 30 day(s) 09/27/2023ctivePhentermine HCl 37.5 MG1 capsule Orally Once a dayActive Meloxicam 7.5 MG1 tablet Orally Once a dayActive Social History Tobacco Use: Social History Observation Description Date Details (start date - stop date) Never Smoker NA - NA Tobacco Use/Smoking Question Answer Notes Patient is a nonsmoker Problems Problem Type SNOMED Code ICD Code Onset Dates Problem Status W/U Status Risk Notes Problem 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) (183922263478598) Contracture, right ankle (M24.571) ActiveconfirmedProblemContracture of joint of left ankle (disorder) (022518428706026)Contracture, left ankle (M24.572)ActiveconfirmedProblemPlantar fascial fibromatosis (64134266)Plantar fascial fibromatosis (M72.2)Active confirmedProblemPain in right foot (030109104871247)Pain in right foot (M79.671) ActiveconfirmedProblemPain in left foot (613167055260696)Pain in left foot (M79.672)Activeconfirmed Plan Of Treatment No Information Insurance Providers Payer Name Payer Address Payer Phone Subscriber Number Group Number Insured Name Patient Relationship to Insured Coverage Start Date Coverage End Date O [address] [facility] O [id number] Martyinet, Linda - patient is the insured Medical (General) History Surgical History Surgery Date(Month/Year) carpal tunnel release 2010
== END 2025-10-03 07:36 | disposition home or self-care (01) ==
LOC: RAD 07:35
PROVIDERS: PCP Nurse Practitioner; Visit Provider Physician Assistant
DX: M25.561 Pain in right knee (principal)
CPT/HCPCS: 73560; 73564